=== PATIENT | female | born 1950 | race Caucasian/White ===

== ENCOUNTER → 2016-09-05 | Outpatient (CLI) | payer BC ==
--- NOTE | 2016-09-05 14:30 | KCIC ---
MR LUMBAR SPINE HISTORY:Reason For StudyReason: RT SIDED LOW BACK PAIN, RT SCIATICA / Spl. Instructions: / History: Pain for 3 months, old fx T11 COMPARISON: None Technique: Sagittal T2, sagittal STIR, and sagittal T1-weighted images were obtained. Additional axial T1 and T2 weighted imaging was also performed. FINDINGS: There is advanced facet arthropathy at L4-L5 with grade 2 degenerative anterolisthesis. There is marked ligamentum flavum thickening and a broad-based disc protrusion. This results in severe central spinal stenosis and severe right foraminal stenosis. There is no compression fracture. The conus terminates normally at the level of L1. Visualized intra-abdominal contents are within normal limits. Impression: - Grade 2 degenerative anterolisthesis of L4 on L5 resulting in severe central spinal stenosis and right foraminal stenosis. Electronically signed by: Vasu Hughes (Sep 05, 2016 14:29:22)
== END | disposition home or self-care (01) ==
LOC: KCIC MRI 12:30
PROVIDERS: ATTEND Internal Medicine
DX: M48.06 Spinal stenosis, lumbar region (principal); M43.16 Spondylolisthesis, lumbar region; M51.26 Other intervertebral disc displacement, lumbar region; M12.88 Other specific arthropathies, not elsewhere classified, other specified site
CPT/HCPCS: 72148

== ENCOUNTER → 2016-09-22 | Outpatient (CLI) | payer BC, MEDICARE ==
[~2016-09-22] MED LIST: CALC-178 PO; CHOL200027 PO; ESCI10TA PO; IBUP-1027 PO; LACT1CAP8 PO; LOSA1TAB17 PO; PANT40TA3 PO; RALO60TA PO; SIMV20TA3 PO
--- NOTE | 2016-09-22 15:04 | EKG ---
[address] [place] [address] Test Date: 2016-09-22 Test Time: 15:03:33 Pat Name: DIANE BROOKE Department: Room: Gender: F Cultural Historian: : 1950 Requested By: NINA WALLER Order Number: [id number] Reading MD: Suri Martin Measurements Intervals [place] Rate: 85 P: 0 [place]: 150 QRS: 26 QRSD: 96 T: 3 QT: 356 QTc: 424 Interpretive Statements SINUS RHYTHM QRS(T) CONTOUR ABNORMALITY CONSISTENT WITH INFERIOR INFARCT AGE UNDETERMINED ABNORMAL ECG RI6.01 No previous ECG available for comparison Electronically Signed On 09-24-2016 10:41:27 CDT by Suri Martin
[2016-09-22 15:23] LABS: BASO # 0.1 x10^3/uL (0.0-0.2); BASO % 1 % (0-3); EOS % 2 % (0-3); HEMATOCRIT 36.1 % (36.0-47.0); HEMOGLOBIN 11.8 g/dL (12.0-15.5); LYMPH # 1.1 x10^3/uL (1.0-4.8); LYMPH % 19 % (24-48); MEAN CORPUSCULAR HEMOGLOBIN 28 pg (25-35); MEAN CORPUSCULAR HGB CONC 33 g/dL (31-37); MEAN CORPUSCULAR VOLUME 87 fL (79-100); MONO % 10 % (0-9); NEUT % 67 % (31-73); PLATELET COUNT 257 x10^3/uL (140-400); RED BLOOD COUNT 4.16 x10^6/uL (3.50-5.40); RED CELL DISTRIBUTION WIDTH 13.8 % (11.5-14.5); WHITE BLOOD COUNT 5.5 x10^3/uL (4.0-11.0)
[2016-09-22 15:48] LABS: ALBUMIN 3.6 g/dL (3.4-5.0); CALCIUM 9.1 mg/dL (8.5-10.1); CREATININE 0.8 mg/dL (0.6-1.0); GFR 71.8; POTASSIUM 3.4 mmol/L (3.5-5.1); TOTAL BILIRUBIN 0.3 mg/dL (0.2-1.0); TOTAL PROTEIN 7.2 g/dL (6.4-8.2)
[2016-09-22 16:23] LABS: PROTHROMBIN TIME PATIENT 12.9 SEC (11.7-14.0)
== END | disposition home or self-care (01) ==
LOC: SURGPAT 14:31
PROVIDERS: ATTEND Neurological Surgery
DX: Z01.818 Encounter for other preprocedural examination (principal); I10 Essential (primary) hypertension
CPT/HCPCS: 36415; 80053; 85027; 85610; 85730; 87641; 93005

== ENCOUNTER 2016-10-02 07:36 | Inpatient (IN) | payer BC, MEDICARE ==
[~2016-10-02] VITALS: Ht 172.7 cm; Wt 67.1 kg
--- NOTE | 2016-10-02 06:49 | HP ---
ADMIT DATE: 10/02/2016 Stepan Catherine RN, dictating for Dr. Jose Waller. 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 She says she has noted numbness across the top of her right foot. She feels as though there is some weakness in her foot. She has fallen 3 times recently. This problem began 3 months ago. She does describe pain in her right leg and back, but says there is more discomfort than pain. ____ increase her discomfort. She takes ibuprofen. She tried acupuncture as well as physical therapy, which was not particularly helpful. She is doing chiropractic treatment currently. There is no significant problem on the left side. She has been using a cane intermittently. PAST MEDICAL HISTORY: Anemia, headaches, hypertension, osteopenia. PAST SURGICAL HISTORY: Denies. FAMILY HISTORY: Diabetes, hypertension. SOCIAL HISTORY: Employed as a nurse. . Denies substance abuse. Quit smoking greater than 10 years ago. Two alcoholic drinks daily. Drinks tea daily. ALLERGIES: COMPAZINE. CURRENT MEDICATIONS: Losartan, potassium, Evista, Lexapro, Protonix, probiotic, calcium, magnesium, vitamin D3. REVIEW OF SYSTEMS: A 12-point review of systems was obtained and is noncontributory except for that mentioned above. NEUROSURGERY EXAMINATION: GENERAL APPEARANCE: Alert, pleasant, in no acute distress. HEAD: Normocephalic and atraumatic. SKIN: Warm and dry. MUSCULOSKELETAL: Lumbar paraspinal muscle bulk is normal, restricted range of motion of the lumbar spine, [id number] tenderness of lower lumbar spine with palpation, normal range of motion of the lower extremities bilaterally. EXTREMITIES: No clubbing, cyanosis, or edema. NEUROLOGIC: Alert and oriented x 3, normal recent and remote memory, strength 5/5 in bilateral lower extremities except for her right foot and weak dorsiflexion as 4/5. Sensory was intact to light touch in the bilateral lower extremities except for decrease in the dorsum of the right foot and her right anterior lateral leg, reflexes were present and symmetric in the lower extremities bilaterally, negative straight leg raising bilaterally, gait with forward stooped posture. IMAGING: Reviewed. I reviewed a lumbar MRI scan done recently. On that study, there is a grade 2 spondylolisthesis at L4-L5 with severe central spinal stenosis associated with this. Additionally, there is superimposed right-sided disk herniation which results in additional severe neural foraminal narrowing on the right. ASSESSMENT: 1. Spondylolisthesis, lumbar region. 2. Spinal stenosis, lumbar region. 3. Intervertebral disk disorders with radiculopathy, lumbar region. 4. Foot drop, right foot. PLAN: The patient has significant right lumbar radiculopathy with right-sided foot drop. She has fallen 3 times because of this. On imaging studies, there is a grade 2 spondylolisthesis combined with severe central canal stenosis and right-sided foraminal stenosis. My feeling is that she should undergo laminectomy with reduction of her spondylolisthesis combined with an anterior posterior lumbar interbody fusion. I discussed this with her in detail. I outlined the risks of the surgery as well as the expected postoperative course. She would like to go ahead. She is going to work to make arrangements for surgery. She will let us know. We will begin making arrangements. JOSE WALLER MD DR: DIONNE/pieter JOB#: [id number] / [id number]
[~2016-10-02 07:36] MED LIST changes: +BUPIVAC MPF-EPI 0.5%-1:200000 30 ML VIAL. ONE; +CEFAZOLIN 2GM PREMIX 50 ML IV PRN; +FENTANYL PF 100 MCG/2 ML VIAL. IV PRN; +GELATIN SPONGE SIZE 100. ONE; +IV RINGERS,LACTATED 1000ML 1,000 ML IV SCH; +KETOROLAC 60 MG/2 ML SYRINGE FOR OR. ONE; +LIDOCAINE 1% 1 ML SYRINGE. ID PRN; +MORPHINE SULFATE 2 MG/ML DISP.SYRIN. IV PRN; +THROMBIN 20,000 UNIT SPRAY.SYRN KIT TP ONE
[2016-10-02] MEDS ORDERED: BACITRACIN 50,000 UNIT in IV NORMAL SALINE 1000ML BAG 1,000 ML IRR ONE (08:00)
--- NOTE | 2016-10-02 09:54 | RAD ---
CT of the lumbar spine without contrast, 10/02/2016: History: Spondylolisthesis, lumbar stenosis, brain lab study Multidetector noncontrast scans were obtained with multiplanar reconstructions produced. The data was transferred to the operating room to aid in the patient's stereotactically guided surgery. The following findings are delineated: 1. At L1-2 there is no significant posterior disc bulge or protrusion. The central spinal canal and neural foramina are well maintained. 2. At L2-3 there is mild broad-based posterior disc bulging. There are mild degenerative changes involving the facet joints. The central spinal canal is well maintained. There is mild inferior foraminal narrowing bilaterally. 3. At L3-4 there is moderate broad-based posterior disc bulging. There are mild degenerative changes involving the facet joints with posterior ligamentous thickening. There is mild narrowing of the central spinal canal with thecal sac measuring 8-9 mm in AP diameter at the midline. There is mild inferior foraminal narrowing. 4. At L4-5 there are severe degenerative changes involving the facet joints with a moderate spondylolisthesis. There is approximately 8 mm of anterior subluxation of L4 relative to L5. There is broad-based posterior disc protrusion, more so on the right. This is causing severe encroachment upon the right neural foramen and moderate left foraminal encroachment. The combination of findings is causing severe central spinal stenosis at this level. 5. At L5-S1 there is mild posterior disc bulging. There are mild degenerative changes involving the facet joints. No significant central spinal stenosis is evident. There is mild bilateral foraminal narrowing. 6. Incidental findings include right adrenal calcifications. Aortoiliac calcific plaquing is present. PQRS Compliance Statement: One or more of the following individualized dose reduction techniques were utilized for this examination: 1. Automated exposure control 2. Adjustment of the mA and/or kV according to patient size 3. Use of iterative reconstruction technique
[2016-10-02] MEDS ORDERED: FENTANYL PF 100 MCG/2 ML VIAL. ONE (10:39)
[2016-10-02] MEDS ORDERED: REMIFENTANIL 2 MG VIAL. IV ONE ×2 (10:39→14:05)
[2016-10-02] MEDS ORDERED: GLYCOPYRROLATE 1 MG/5 ML VIAL. ONE (10:39)
[2016-10-02] MEDS ORDERED: ROCURONIUM 50 MG/5 ML VIAL. ONE (10:39)
[2016-10-02] MEDS ORDERED: MIDAZOLAM HCL 2 MG/2 ML VIAL. ONE (10:39)
[2016-10-02] MEDS ORDERED: DESFLURANE > 120 MINUTES IH ONE (10:41)
[2016-10-02] MEDS ORDERED: PROPOFOL 20 ML IV ONE (10:42)
[2016-10-02] MEDS ORDERED: ONDANSETRON PF 4 MG/2 ML VIAL. ONE (10:42)
[2016-10-02] MEDS ORDERED: PROPOFOL 50 ML IV ONE ×3 (10:42→14:40)
[2016-10-02] MEDS ORDERED: LIDOCAINE 2% 100 MG/5 ML DISP.SYRIN. ONE (10:42)
[2016-10-02] MEDS ORDERED: PHENYLEPHRINE 10 MG/ML VIAL. ONE ×2 (10:42→15:55)
[2016-10-02] MEDS ORDERED: DEXAMETHASONE SOD PHOS 20 MG/5 ML VIAL. ONE (10:42)
[2016-10-02] MEDS ORDERED: SCOPOLAMINE 1.5MG PATCH. TD ONE (11:43)
[2016-10-02] MEDS ORDERED: 0.9 % SODIUM CHLORIDE 50 ML VIAL. IJ ONE (14:05)
[2016-10-02] MEDS ORDERED: CEFAZOLIN PREMIX 2 GM/50 ML BAG. IV ONE (16:00)
[2016-10-02] MEDS: HYDROMORPHONE 2 MG/ML VIAL. IV PRN ×3 (17:07→17:47)
[2016-10-02] MEDS ORDERED: 0.9 % SODIUM CHLORIDE 10 ML DISP.SYRIN. IV PRN (18:15)
[2016-10-02] MEDS ORDERED: FENTANYL PF 100 MCG/2 ML VIAL. IV PRN ×2 (18:15)
[2016-10-02] MEDS ORDERED: MAG HYDROX/ALUMINUM HYD/SIMETH 30 ML ORAL.SUSP PO PRN (18:15)
[2016-10-02] MEDS ORDERED: DIPHENHYDRAMINE 50 MG/ML VIAL IV PRN (18:15)
[2016-10-02] MEDS ORDERED: HYDROMORPHONE 2 MG/ML VIAL. IV PRN (18:15)
[2016-10-02] MEDS ORDERED: DIPHENHYDRAMINE HCL 25 MG CAPSULE PO PRN (18:15)
[2016-10-02] MEDS ORDERED: CALCIUM CARBONATE 500 MG TAB.CHEW PO PRN (18:15)
[2016-10-02 18:30] VITALS: BP 103/72
[2016-10-02] MEDS: POTASSIUM CL 20MEQ D5-0.45NACL 1,000 ML IV SCH (18:30)
[2016-10-02 18:49] VITALS: BP 111/89
[2016-10-02 19:09] VITALS: BP 99/61
[2016-10-02 19:30] VITALS: BP 119/74
[2016-10-02 20:00] VITALS: BP 117/79
[2016-10-02] MEDS: DOCUSATE SODIUM 100 MG CAPSULE PO SCH (20:30)
[2016-10-02] MEDS: METHOCARBAMOL 750 MG TABLET PO SCH (20:30)
[2016-10-02] MEDS: SIMVASTATIN 20 MG TABLET PO SCH (20:30)
[2016-10-02] MEDS: CEFAZOLIN SODIUM 1 GM in IV NORMAL SALINE 50ML 50 ML IV SCH (20:30)
[2016-10-02] MEDS: OXYCODONE/APAP 5/325 TABLET. PO PRN (20:32)
[2016-10-02 23:00] VITALS: BP 92/66
[2016-10-03] VITALS (7 sets, daily range): BP systolic 80–104; BP diastolic 42–66
[2016-10-03] MEDS: FENTANYL PF 100 MCG/2 ML VIAL. IV PRN (02:15)
[2016-10-03] MEDS: CEFAZOLIN SODIUM 1 GM in IV NORMAL SALINE 50ML 50 ML IV SCH ×2 (04:00→11:38)
[2016-10-03] MEDS: OXYCODONE/APAP 5/325 TABLET. PO PRN ×5 (04:44→22:40)
[2016-10-03] MEDS: POTASSIUM CL 20MEQ D5-0.45NACL 1,000 ML IV SCH ×2 (07:50→21:10)
[2016-10-03] MEDS: ESCITALOPRAM 10 MG TABLET. PO SCH (08:49)
[2016-10-03] MEDS: METHOCARBAMOL 750 MG TABLET PO SCH ×3 (08:49→21:38)
[2016-10-03] MEDS: PANTOPRAZOLE 40 MG TABLET. PO SCH (08:49)
[2016-10-03] MEDS: DOCUSATE SODIUM 100 MG CAPSULE PO SCH ×2 (08:49→21:39)
[2016-10-03] MEDS: RALOXIFENE 60 MG TABLET. PO SCH (08:49)
[2016-10-03] MEDS: CALCIUM CARB/VIT D3 500/200 TABLET. PO SCH (08:49)
[2016-10-03] MEDS: CHOLECALCIFEROL (VITAMIN D3) 1,000 UNIT TABLET PO SCH (08:49)
[2016-10-03] MEDS: LACTOBACILLUS ACIDOPH & BULGAR 1 TABLET. PO SCH (08:49)
[2016-10-03] MEDS: LOSARTAN POTASSIUM 50 MG TABLET. PO SCH (09:00)
--- NOTE | 2016-10-03 10:30 | PDOC ---
PROGRESS NOTES Subjective Subjective POD #1 up in chair right leg pain resolved, c/o some mild knee pain back/ incision pain - controlled with medication Objective Objective Vital Signs Date Time Temp Pulse Resp B/P Pulse Ox O2 Delivery O2 Flow Rate FiO2 10/03/16 09:51 20 10/03/16 08:55 79 93/55 Room Air 10/03/16 07:53 2.0 10/03/16 06:33 97.9 95 97.9 Intake and Output 10/03/16 07:00 Intake Total 2910 ml Output Total 600 ml Balance 2310 ml Intake Oral 2810 ml IV Total 100 ml Output Urine Total 600 ml Physical Exam General: Alert, Oriented X3, Cooperative MUSCULOSKELETAL: Other (MACIAS) Neuro: Normal speech Psych/Mental Status: Mental status NL Skin: Other (dressing C,D,I, flat) Assessment Assessment Problems Medical Problems: (1) Spondylolisthesis Status: Acute Plan Plan of Care encouraged increased activity as tolerated PT Likely dc tomorrow Comment Review of Relevant I have reviewed the following items meryl (where applicable) has been applied. Medications Current Medications Fentanyl Citrate (Fentanyl 2ml Vial) 25 mcg PRN Q5MIN PRN IV MILD PAIN; Start 10/02/16 at 07:00; Stop 10/02/16 at 18:00; Status DC Fentanyl Citrate (Fentanyl 2ml Vial) 50 mcg PRN Q5MIN PRN IV MODERATE PAIN Last administered on 10/02/16 17:35; Start 10/02/16 at 07:00; Stop 10/02/16 at 18:00; Status DC Morphine Sulfate 1 mg 1 mg PRN Q10MIN PRN IV SEVERE PAIN; Start 10/02/16 at 07: 00; Stop 10/02/16 at 18:00; Status DC Lactated Ringer's (Iv Lactated Ringers) 1,000 ml @ 30 mls/hr Q24H IV Last administered on 10/02/16 08:34; Start 10/02/16 at 07:00; Stop 10/02/16 at 18:59 ; Status DC Lidocaine HCl 2 ml 1X PRN PRN ID IV START; Start 10/02/16 at 07:00; Stop at 18:00; Status DC Hydromorphone HCl 0.5 mg 0.5 mg PRN Q10MIN PRN IV SEVERE PAIN, Second choice Last administered on 10/02/16 17:47; Start 10/02/16 at 07:00; Stop 10/02/16 at 18:00; Status DC Bacitracin 15659 unit/Sodium Chloride 1,000 ml @ 1,000 mls/hr 1X PERIOP ONCE IRR Last administered on 10/02/16 12:41; Start 10/02/16 at 08:00; Stop at 08:59; Status DC Cefazolin Sodium/ Dextrose (Ancef 2gm Premix) 50 ml @ 100 mls/hr 1X PREOP PRN IV PRIOR TO PROCEDURE Last administered on 10/02/16 16:04; Start 10/02/16 at 06 :00; Stop 10/02/16 at 18:00; Status DC Thrombin 20,000 unit STK-MED ONCE TP Last administered on 10/02/16 12:41; Start 10/02/16 at 06:44; Stop 10/02/16 at 06:45; Status DC Gelatin (Gelfoam Size 100) 1 each STK-MED ONCE .ROUTE Last administered on 12:41; Start 10/02/16 at 06:44; Stop 10/02/16 at 06:45; Status DC Ketorolac Tromethamine (Toradol For Or Only) 60 mg STK-MED ONCE .ROUTE Last administered on 10/02/16 12:41; Start 10/02/16 at 06:44; Stop 10/02/16 at 06:45 ; Status DC Bupivacaine HCl/ Epinephrine Bitart (Sensorcain-Mpf Epi 0.5%-1:[id number]) 30 ml STK -MED ONCE .ROUTE Last administered on 10/02/16 12:41; Start 10/02/16 at 06:44 ; Stop 10/02/16 at 06:45; Status DC Midazolam HCl (Versed) 2 mg STK-MED ONCE .ROUTE ; Start 10/02/16 at 10:39; Stop 10/02/16 at 10:40; Status DC Remifentanil HCl (Ultiva) 2 mg STK-MED ONCE IV ; Start 10/02/16 at 10:39; Stop 10/02/16 at 10:40; Status DC Fentanyl Citrate (Fentanyl 2ml Vial) 100 mcg STK-MED ONCE .ROUTE ; Start at 10:39; Stop 10/02/16 at 10:40; Status DC Glycopyrrolate (Robinul) 1 mg STK-MED ONCE .ROUTE ; Start 10/02/16 at 10:39; Stop 10/02/16 at 10:40; Status DC Rocuronium [place] (Zemuron) 50 mg STK-MED ONCE .ROUTE ; Start 10/02/16 at 10:39 ; Stop 10/02/16 at 10:40; Status DC Desflurane (Suprane) 90 ml STK-MED ONCE IH ; Start 10/02/16 at 10:41; Stop 10/02 at 10:42; Status DC Lidocaine HCl 100 mg STK-MED ONCE .ROUTE ; Start 10/02/16 at 10:42; Stop at 10:43; Status DC Dexamethasone Sodium Phosphate 20 mg 20 mg STK-MED ONCE .ROUTE ; Start 10/02/16 at 10:42; Stop 10/02/16 at 10:43; Status DC Propofol 20 ml @ As Directed STK-MED ONCE IV ; Start 10/02/16 at 10:42; Stop at 10:43; Status DC Propofol (Diprivan) 50 ml @ As Directed STK-MED ONCE IV ; Start 10/02/16 at 10: 42; Stop 10/02/16 at 10:43; Status DC Ondansetron HCl (Zofran) 4 mg STK-MED ONCE .ROUTE ; Start 10/02/16 at 10:42; Stop 10/02/16 at 10:43; Status DC Phenylephrine HCl (Prashanth-Synephrine Inj) 10 mg STK-MED ONCE .ROUTE ; Start at 10:42; Stop 10/02/16 at 10:43; Status DC Scopolamine 1 patch 1 patch STK-MED ONCE TD ; Start 10/02/16 at 11:43; Stop at 11:44; Status DC Propofol (Diprivan) 50 ml @ As Directed STK-MED ONCE IV ; Start 10/02/16 at 13: 04; Stop 10/02/16 at 13:05; Status DC Remifentanil HCl 2 mg 2 mg STK-MED ONCE IV ; Start 10/02/16 at 14:05; Stop 10/02 at 14:06; Status DC Propofol (Diprivan) 50 ml @ As Directed STK-MED ONCE IV ; Start 10/02/16 at 14: 40; Stop 10/02/16 at 14:41; Status DC Phenylephrine HCl (Prashanth-Synephrine Inj) 10 mg STK-MED ONCE .ROUTE ; Start at 15:55; Stop 10/02/16 at 15:56; Status DC Hydromorphone HCl (Dilaudid) 0.5 mg PRN Q10MIN PRN IV SEVERE PAIN, Second choice Last administered on 10/02/16 17:59; Start 10/02/16 at 18:15; Stop 10/03 at 06:00; Status DC Fentanyl Citrate (Fentanyl 2ml Vial) 50 mcg PRN Q5MIN PRN IV MODERATE PAIN Last administered on 10/02/16 18:09; Start 10/02/16 at 18:15; Stop 10/03/16 at 06:00; Status DC Escitalopram Oxalate (Lexapro) 10 mg DAILY PO Last administered on 10/03/16 08 :49; Start 10/03/16 at 09:00 Pantoprazole Sodium (Protonix) 40 mg DAILYAC PO Last administered on 10/03/16 08:49; Start 10/03/16 at 07:30 Raloxifene HCl (Evista) 60 mg DAILY PO Last administered on 10/03/16 08:49; Start 10/03/16 at 09:00 Simvastatin (Zocor) 20 mg HS PO Last administered on 10/02/16 20:30; Start at 21:00 Calcium/Vitamin D (Oscal D 500mg/ 200uts) 1 tab [id number] PO Last administered on 10/03/16 08:49; Start 10/03/16 at 08:00 Vitamin D (Vitamin D3) 2,000 unit DAILY PO Last administered on 10/03/16 08:49 ; Start 10/03/16 at 09:00 Lactobacillus Acidophilus (Bacid, Lyric-Bid) 1 tab DAILY PO Last administered on 10/03/16 08:49; Start 10/03/16 at 09:00 Losartan Potassium (Cozaar) 100 mg DAILY PO ; Start 10/03/16 at 09:00 Acetaminophen (Tylenol) 650 mg PRN Q6HRS PRN PO MILD PAIN / TEMP; Start at 18:15 Al Hydroxide/Mg Hydroxide (Mylanta Plus Xs) 30 ml PRN Q3HRS PRN PO HEARTBURN / GAS; Start 10/02/16 at 18:15 Calcium Carbonate/ Glycine (Tums) 500 mg PRN Q3HRS PRN PO INDIGESTION; Start at 18:15 Diphenhydramine HCl (Benadryl) 25 mg PRN Q6HRS PRN PO ITCHING; Start 10/02/16 at 18:15 Diphenhydramine HCl (Benadryl) 25 mg PRN Q6HRS PRN IV ITCHING; Start 10/02/16 at 18:15 Sodium Chloride 3 ml 3 ml QSHIFT PRN IV AFTER MEDS AND BLOOD DRAWS; Start 10/02 at 18:15 Potassium Chloride/Dextrose/ Sod Cl (KCl 20 Meq In D5W-1/2 NS) 1,000 ml @ 75 mls/hr [id number] IV ; Start 10/02/16 at 18:30 Oxycodone/ Acetaminophen (Percocet 5/325) 1 tab PRN Q4HRS PRN PO MILD PAIN, 1ST CHOICE; Start 10/02/16 at 18:15 Oxycodone/ Acetaminophen (Percocet 5/325) 2 tab PRN Q4HRS PRN PO MODERATE PAIN , SEVERE PAIN Last administered on 10/03/16 09:51; Start 10/02/16 at 18:15 Methocarbamol (Robaxin) 750 mg TID PO Last administered on 10/03/16 08:49; Start 10/02/16 at 21:00 Docusate Sodium (Colace) 100 mg BID PO Last administered on 10/03/16 08:49; Start 10/02/16 at 21:00 Magnesium Hydroxide (Milk Of Magnesia) 2,400 mg PRN Q12HR PRN PO CONSTIPATION; Start 10/02/16 at 18:15 Ondansetron HCl 4 mg 4 mg PRN Q6HRS PRN IV NAUESA, 1ST CHOICE; Start 10/02/16 at 18:15 Cefazolin Sodium/ Sodium Chloride (Ancef/Iv Sodium Chloride 0.9% 50ml) 50 ml @ 100 mls/hr Q8H IV Last administered on 10/03/16 04:00; Start 10/02/16 at 20:00 ; Stop 10/03/16 at 12:29 Fentanyl Citrate (Fentanyl 2ml Vial) 25 mcg PRN Q1HR PRN IV PAIN; Start at 18:15 Fentanyl Citrate (Fentanyl 2ml Vial) 50 mcg PRN Q1HR PRN IV PAIN Last administered on 10/03/16 02:15; Start 10/02/16 at 18:15 Cefazolin Sodium/ Dextrose (Ancef 2gm Premix) 2 gm STK-MED ONCE IV ; Start 10/02 at 16:00; Stop 10/03/16 at 08:08; Status DC Active Scripts Active Reported Vitamin D3 (Cholecalciferol (Vitamin D3)) 2,000 Unit Tablet 2,000 Unit PO DAILY Calcium 1,000 + D3 Caplet (Calcium Carbonate/Vitamin D3) 1 Each Tablet 1 Each PO DAILY Simvastatin 20 Mg Tablet 20 Mg PO HS Probiotic (Lactobacillus Combo No.11) 1 Each Cap.sprink 1 Each PO DAILY Protonix (Pantoprazole Sodium) 40 Mg Tablet.dr 40 Mg PO DAILY Escitalopram Oxalate 10 Mg Tablet 10 Mg PO DAILY Evista (Raloxifene Hcl) 60 Mg Tablet 60 Mg PO DAILY Losartan-Hctz 100-25 Mg Tab (Losartan/Hydrochlorothiazide) 1 Each Tablet 1 Each PO DAILY Ibuprofen 400 Mg Tablet 400 Mg PO PRN Q6HRS PRN Vitals/I & O Vital Sign - Last 24 Hours 10/02/16 10/02/16 10/02/16 10/02/16 16:52 17:05 17:07 17:08 Temp 98.1 98.1 Pulse 91 91 Resp 18 18 16 B/P 121/68 107/50 Pulse Ox 100 97 100 O2 Delivery Simple Mask Nasal Cannula Simple Mask Simple Mask O2 Flow Rate 10 2 10 10/02/16 10/02/16 10/02/16 10/02/16 17:20 17:23 17:35 17:38 Temp 98.3 98.3 Pulse 93 97 Resp 14 16 16 16 B/P 117/73 107/64 Pulse Ox 99 97 O2 Delivery Room Air Nasal Cannula Nasal Cannula Nasal Cannula O2 Flow Rate 2 2 10/02/16 10/02/16 10/02/16 10/02/16 17:47 17:59 18:09 18:20 Resp 16 20 Pulse Ox 98 96 O2 Delivery Nasal Cannula Nasal Cannula Room Air Nasal Cannula O2 Flow Rate 2.0 2.0 2.0 10/02/16 10/02/16 10/02/16 10/02/16 18:30 18:37 18:37 18:49 Temp 97.8 97.8 Pulse 90 87 Resp 18 16 16 B/P 103/72 111/89 Pulse Ox 97 96 96 O2 Delivery Nasal Cannula Nasal Cannula Nasal Cannula O2 Flow Rate 2.0 2.0 2.0 10/02/16 10/02/16 10/02/16 10/02/16 19:09 19:30 19:53 20:00 Pulse 90 95 97 Resp 20 20 20 B/P 99/61 119/74 117/79 Pulse Ox 96 96 96 O2 Delivery Nasal Cannula Nasal Cannula Nasal Cannula Nasal Cannula O2 Flow Rate 2.0 2.0 2.0 2.0 10/02/16 10/02/16 10/02/16 10/03/16 20:32 21:45 23:00 02:15 Temp 97.6 97.6 Pulse 88 Resp 20 18 B/P 92/66 Pulse Ox 96 97 O2 Delivery Nasal Cannula Room Air Room Air O2 Flow Rate 2.0 2.0 10/03/16 10/03/16 10/03/16 10/03/16 02:45 03:00 04:44 05:45 Pulse 87 Resp 18 20 20 18 B/P 80/42 Pulse Ox 92 95 O2 Delivery Room Air Room Air Room Air 10/03/16 10/03/16 10/03/16 10/03/16 06:33 07:53 08:55 09:51 Temp 97.9 97.9 Pulse 94 79 Resp 20 20 20 B/P 97/56 93/55 Pulse Ox 95 O2 Delivery Room Air Nasal Cannula Room Air O2 Flow Rate 2.0 Intake and Output 10/02/16 10/02/16 10/03/16 15:00 23:00 07:00 Intake Total 60 ml 2850 ml Output Total 600 ml Balance 60 ml 2250 ml DAYANA LANDAVERDE APRN Oct 03, 2016 10:30
--- NOTE | 2016-10-03 10:33 | DISCH ---
DISCHARGE INSTRUCTIONS Condition on Discharge Condition on Discharge: Stable Activity After Discharge Activity Instructions for Disc: Activity as tolerated, Avoid exertion Bathing Instructions: Shower-keep dressing dry Lifting Instructions after Dis: No heavy lifting, No pulling or pushing, Do not lift >10 pounds Driving Instructions after Dis: No driving for 2 weeks Diet after Discharge Additional Diet Restrictions: resume home diet Wound Incision Care Wound/Incision Care: Ice to area for comfort Other wound/incision instructi: may remove in 48 hrs if dry then may shower, no soaking, HH dressing change Community/Resources/Services Services at Discharge: Home Health Care Services Contacting the after DC Call your doctor for: Concerns you may have Follow-Up Follow up with: Dr. Rahman's nurse in 2 weeks [phone] Treatment/Equipment after DC Adaptive Equipment Issued: DAYANA Ramon APRN Oct 03, 2016 10:33
[2016-10-03] MEDS ORDERED: DOCU-27 PO (10:35)
[2016-10-03] MEDS ORDERED: OXYC1TAB7 PO (10:35)
[2016-10-03] MEDS ORDERED: METH750T2 PO (10:35)
[2016-10-03] MEDS ORDERED: BISACODYL 5 MG TABLET.DR. PO PRN (13:30)
[2016-10-03] MEDS: BISACODYL 5 MG TABLET.DR. PO PRN (17:53)
--- NOTE | 2016-10-03 21:36 | OP ---
DATE OF SURGERY: 10/02/2016 PREOPERATIVE DIAGNOSES: Lumbar spinal stenosis with spondylolisthesis and radiculopathy, L4-L5. POSTOPERATIVE DIAGNOSIS: Lumbar spinal stenosis with spondylolisthesis and radiculopathy, L4-L5. OPERATION PERFORMED: Lumbar laminectomy, L4-L5, posterior instrumentation with reduction screws L4-L5, posterolateral fusion L4-L5 with allograft and autograft bone, anterior discectomy L4-L5, anterior interbody fusion L4-L5 with interbody fusion cage packed with allograft and autograft bone. The operation was done with stimulated EMG monitoring, fluoroscopy, BrainLAB guidance, microscopic dissection, bone marrow aspiration. SURGEON: Jose Waller M.D. PUFF IRONER: PEDRO Mae, assisted with the surgery. She assisted with the decompression, instrumentation, anterior discectomy and fusion. OPERATIVE INDICATIONS: The patient is a very pleasant 66-year-old who is having difficulty with severe back and right buttock, posterior thigh and leg pain. On imaging studies, she had the above-mentioned findings and there was significant motion on flexion and extension films and I recommended lumbar decompression, reduction of her spondylolisthesis, discectomy and anterior, posterior fusion. She understood the surgery and the risks. She understood the technique of the operation. She wished to go ahead. DESCRIPTION OF PROCEDURE: Following general endotracheal anesthesia, the patient was positioned prone on the Oscar table. Her lumbar region was then prepped and draped in standard fashion. ESSIE hose and AV impulse boots were applied for DVT prophylaxis. A microscope was draped. Fluoroscopy was draped and brought into the field. Ancef 2 grams was given less than 1 hour prior to initiation of surgery and repeated at 4 hour intervals. I placed pins on the right iliac crest attached to the CrowdTwist star and initialized the CrowdTwist system. Using BrainLAB guidance and I made a midline incision over the L4-L5 interspace. I dissected down through the skin and subcutaneous tissue and reflected the paraspinal muscles first in the left side. I placed a [place] micro disc retractor at this point and exposed the lamina and spinous processes of L4 and L5 and also the left lateral gutter. I placed a Jamshidi needle into the left iliac crest and aspirated 20 mL of bone marrow to use with allograft bone. I then drilled into the posterior aspect of the pedicles of L4 and L5 followed by the black ball followed by ball tip probe, followed by tap, followed by screw placement. I used the NuVasive system and placed 6.5 x 45 screws, I placed the piero, but did not yet torque the assembly. I did trim spinous process and morcellized this and used this with allograft bone to pack into the left lateral gutter. I then went to the right side and in similar fashion, I created an openings into the pedicles of L4 and L5, but did not yet place screws that covered the openings with bone wax. Also, again using the micro lumbar retractor to minimize retraction, I exposed the gutter. I might note that prior to placement of bone for the posterolateral fusion, I did excoriate the transverse processes and lateral facets on both sides. At this time, I trimmed further bone, which was morcellized. I packed allograft bone into the gutters and used the high speed air drill to bur down a generous laminectomy, which I carried over toward the right side to ensure that the right-sided nerve roots are well decompressed. I did save this bone for use with allograft bone. At this point, then I placed the 6.5 x 45 screws into L4 and L5. I used the reduction screws in L4. I torqued the L5 screws at this point with 40 mm rods and I placed the nuts in L5 and partially reduced the spondylolisthesis. I further distracted this region to help accommodate and simplify the anterior operation. At this point, then I tilted the patient away from me and performed the anterior discectomy. After tilting the patient, I made an incision in the right posterior flank and passed the BrainLAB with sleeve down to dock just initially at the pedicle of L5 where it attached to the body and then worked superiorly and entered into the disc space at this location. I did pass the K wire and passed the dilator after ensuring that the nerve root was projected and then passed the working channel and remove the dilator. Through the working channel, then I performed a discectomy using endplate scrapers, pituitary rongeurs, disc shaver and worked aggressively to remove disc material from the L4-L5 interspace. Following this, then I did place the shield to protect the L4 root as it moved quite far laterally from the passage of the cage and removed the working channel. I then passed these trials to select the appropriate one and I felt the 10 mm cage would be appropriate. I did then pack bone into the disc space and then at this point, passed the interbody fusion cage as it was entering into the disc space. I entered in to the disc space and rotated into appropriate position. I did take fluoroscopic images to ensure that it was in satisfactory position. I tilted the patient back toward me and then worked posteriorly to very gently compress at L4-L5 on the right side. I torqued these screws in the standard fashion and at this time, I released and removed the director environmental and shield after I copiously irrigated. This accomplished, then I worked and removed further bone to complete the laminectomy. I noted that on fluoroscopic images the spondylolisthesis was significantly reduced. The interbody fusion cage was in excellent position. I felt that I had an excellent discectomy anteriorly, interbody bone as well as posterolaterally. I torqued again in a sequential fashion and at this point, then I irrigated copiously. I closed the wound with absorbable sutures. The skin was closed with a 4-0 subcuticular stitch. I did obtain excellent hemostasis prior to the closure. I felt the surgery went very well. JOSE WALLER MD DR: DIONNE/pieter JOB#: [id number] / [id number] ANSLEY
[2016-10-03] MEDS: SIMVASTATIN 20 MG TABLET PO SCH (21:39)
[2016-10-04] VITALS (7 sets, daily range): BP systolic 84–124; BP diastolic 49–70
[2016-10-04] MEDS: FENTANYL PF 100 MCG/2 ML VIAL. IV PRN ×2 (00:17→16:08)
[2016-10-04] MEDS: OXYCODONE/APAP 5/325 TABLET. PO PRN ×5 (05:00→23:02)
[2016-10-04] MEDS: CALCIUM CARB/VIT D3 500/200 TABLET. PO SCH (08:56)
[2016-10-04] MEDS: RALOXIFENE 60 MG TABLET. PO SCH (08:56)
[2016-10-04] MEDS: ESCITALOPRAM 10 MG TABLET. PO SCH (08:57)
[2016-10-04] MEDS: METHOCARBAMOL 750 MG TABLET PO SCH ×3 (08:57→20:51)
[2016-10-04] MEDS: CHOLECALCIFEROL (VITAMIN D3) 1,000 UNIT TABLET PO SCH (08:57)
[2016-10-04] MEDS: PANTOPRAZOLE 40 MG TABLET. PO SCH (08:57)
[2016-10-04] MEDS: DOCUSATE SODIUM 100 MG CAPSULE PO SCH ×2 (08:57→20:51)
[2016-10-04] MEDS: LACTOBACILLUS ACIDOPH & BULGAR 1 TABLET. PO SCH (08:57)
[2016-10-04] MEDS: LOSARTAN POTASSIUM 50 MG TABLET. PO SCH (09:00)
[2016-10-04] MEDS: POTASSIUM CL 20MEQ D5-0.45NACL 1,000 ML IV SCH ×2 (10:30→23:50)
[2016-10-04] MEDS: ONDANSETRON PF 4 MG/2 ML VIAL. IV PRN ×2 (11:46→18:50)
--- NOTE | 2016-10-04 13:10 | PDOC ---
PROGRESS NOTES Subjective Subjective POD #2 back/ incisional pain Objective Objective Vital Signs Date Time Temp Pulse Resp B/P Pulse Ox O2 Delivery O2 Flow Rate FiO2 10/04/16 13:00 16 Room Air 10/04/16 11:00 98.0 87 98/52 96 98.0 10/03/16 23:45 2.0 Intake and Output 10/04/16 07:00 Intake Total 3330 ml Balance 3330 ml Intake Oral 3330 ml # Voids 7 Physical Exam General: Alert, Oriented X3, Cooperative MUSCULOSKELETAL: Other (MACIAS) Neuro: Normal speech Skin: Other (dressing C,D,I, flat) Assessment Assessment Problems Medical Problems: (1) Spondylolisthesis Status: Acute Plan Plan of Care likely dc today f/u 2 weeks Comment Review of Relevant I have reviewed the following items meryl (where applicable) has been applied. Medications Current Medications Fentanyl Citrate (Fentanyl 2ml Vial) 25 mcg PRN Q5MIN PRN IV MILD PAIN; Start 10/02/16 at 07:00; Stop 10/02/16 at 18:00; Status DC Fentanyl Citrate (Fentanyl 2ml Vial) 50 mcg PRN Q5MIN PRN IV MODERATE PAIN Last administered on 10/02/16 17:35; Start 10/02/16 at 07:00; Stop 10/02/16 at 18:00; Status DC Morphine Sulfate 1 mg 1 mg PRN Q10MIN PRN IV SEVERE PAIN; Start 10/02/16 at 07: 00; Stop 10/02/16 at 18:00; Status DC Lactated Ringer's (Iv Lactated Ringers) 1,000 ml @ 30 mls/hr Q24H IV Last administered on 10/02/16 08:34; Start 10/02/16 at 07:00; Stop 10/02/16 at 18:59 ; Status DC Lidocaine HCl 2 ml 1X PRN PRN ID IV START; Start 10/02/16 at 07:00; Stop at 18:00; Status DC Hydromorphone HCl 0.5 mg 0.5 mg PRN Q10MIN PRN IV SEVERE PAIN, Second choice Last administered on 10/02/16 17:47; Start 10/02/16 at 07:00; Stop 10/02/16 at 18:00; Status DC Bacitracin 66662 unit/Sodium Chloride 1,000 ml @ 1,000 mls/hr 1X PERIOP ONCE IRR Last administered on 10/02/16 12:41; Start 10/02/16 at 08:00; Stop at 08:59; Status DC Cefazolin Sodium/ Dextrose (Ancef 2gm Premix) 50 ml @ 100 mls/hr 1X PREOP PRN IV PRIOR TO PROCEDURE Last administered on 10/02/16 16:04; Start 10/02/16 at 06 :00; Stop 10/02/16 at 18:00; Status DC Thrombin 20,000 unit STK-MED ONCE TP Last administered on 10/02/16 12:41; Start 10/02/16 at 06:44; Stop 10/02/16 at 06:45; Status DC Gelatin (Gelfoam Size 100) 1 each STK-MED ONCE .ROUTE Last administered on 12:41; Start 10/02/16 at 06:44; Stop 10/02/16 at 06:45; Status DC Ketorolac Tromethamine (Toradol For Or Only) 60 mg STK-MED ONCE .ROUTE Last administered on 10/02/16 12:41; Start 10/02/16 at 06:44; Stop 10/02/16 at 06:45 ; Status DC Bupivacaine HCl/ Epinephrine Bitart (Sensorcain-Mpf Epi 0.5%-1:[id number]) 30 ml STK -MED ONCE .ROUTE Last administered on 10/02/16 12:41; Start 10/02/16 at 06:44 ; Stop 10/02/16 at 06:45; Status DC Midazolam HCl (Versed) 2 mg STK-MED ONCE .ROUTE ; Start 10/02/16 at 10:39; Stop 10/02/16 at 10:40; Status DC Remifentanil HCl (Ultiva) 2 mg STK-MED ONCE IV ; Start 10/02/16 at 10:39; Stop 10/02/16 at 10:40; Status DC Fentanyl Citrate (Fentanyl 2ml Vial) 100 mcg STK-MED ONCE .ROUTE ; Start at 10:39; Stop 10/02/16 at 10:40; Status DC Glycopyrrolate (Robinul) 1 mg STK-MED ONCE .ROUTE ; Start 10/02/16 at 10:39; Stop 10/02/16 at 10:40; Status DC Rocuronium [place] (Zemuron) 50 mg STK-MED ONCE .ROUTE ; Start 10/02/16 at 10:39 ; Stop 10/02/16 at 10:40; Status DC Desflurane (Suprane) 90 ml STK-MED ONCE IH ; Start 10/02/16 at 10:41; Stop 10/02 at 10:42; Status DC Lidocaine HCl 100 mg STK-MED ONCE .ROUTE ; Start 10/02/16 at 10:42; Stop at 10:43; Status DC Dexamethasone Sodium Phosphate 20 mg 20 mg STK-MED ONCE .ROUTE ; Start 10/02/16 at 10:42; Stop 10/02/16 at 10:43; Status DC Propofol 20 ml @ As Directed STK-MED ONCE IV ; Start 10/02/16 at 10:42; Stop at 10:43; Status DC Propofol (Diprivan) 50 ml @ As Directed STK-MED ONCE IV ; Start 10/02/16 at 10: 42; Stop 10/02/16 at 10:43; Status DC Ondansetron HCl (Zofran) 4 mg STK-MED ONCE .ROUTE ; Start 10/02/16 at 10:42; Stop 10/02/16 at 10:43; Status DC Phenylephrine HCl (Prashanth-Synephrine Inj) 10 mg STK-MED ONCE .ROUTE ; Start at 10:42; Stop 10/02/16 at 10:43; Status DC Scopolamine 1 patch 1 patch STK-MED ONCE TD ; Start 10/02/16 at 11:43; Stop at 11:44; Status DC Propofol (Diprivan) 50 ml @ As Directed STK-MED ONCE IV ; Start 10/02/16 at 13: 04; Stop 10/02/16 at 13:05; Status DC Remifentanil HCl 2 mg 2 mg STK-MED ONCE IV ; Start 10/02/16 at 14:05; Stop 10/02 at 14:06; Status DC Propofol (Diprivan) 50 ml @ As Directed STK-MED ONCE IV ; Start 10/02/16 at 14: 40; Stop 10/02/16 at 14:41; Status DC Phenylephrine HCl (Prashanth-Synephrine Inj) 10 mg STK-MED ONCE .ROUTE ; Start at 15:55; Stop 10/02/16 at 15:56; Status DC Hydromorphone HCl (Dilaudid) 0.5 mg PRN Q10MIN PRN IV SEVERE PAIN, Second choice Last administered on 10/02/16 17:59; Start 10/02/16 at 18:15; Stop 10/03 at 06:00; Status DC Fentanyl Citrate (Fentanyl 2ml Vial) 50 mcg PRN Q5MIN PRN IV MODERATE PAIN Last administered on 10/02/16 18:09; Start 10/02/16 at 18:15; Stop 10/03/16 at 06:00; Status DC Escitalopram Oxalate (Lexapro) 10 mg DAILY PO Last administered on 10/04/16 08 :57; Start 10/03/16 at 09:00 Pantoprazole Sodium (Protonix) 40 mg DAILYAC PO Last administered on 10/04/16 08:57; Start 10/03/16 at 07:30 Raloxifene HCl (Evista) 60 mg DAILY PO Last administered on 10/04/16 08:56; Start 10/03/16 at 09:00 Simvastatin (Zocor) 20 mg HS PO Last administered on 10/03/16 21:39; Start at 21:00 Calcium/Vitamin D (Oscal D 500mg/ 200uts) 1 tab [id number] PO Last administered on 10/04/16 08:56; Start 10/03/16 at 08:00 Vitamin D (Vitamin D3) 2,000 unit DAILY PO Last administered on 10/04/16 08:57 ; Start 10/03/16 at 09:00 Lactobacillus Acidophilus (Bacid, Lyric-Bid) 1 tab DAILY PO Last administered on 10/04/16 08:57; Start 10/03/16 at 09:00 Losartan Potassium (Cozaar) 100 mg DAILY PO ; Start 10/03/16 at 09:00 Acetaminophen (Tylenol) 650 mg PRN Q6HRS PRN PO MILD PAIN / TEMP; Start at 18:15 Al Hydroxide/Mg Hydroxide (Mylanta Plus Xs) 30 ml PRN Q3HRS PRN PO HEARTBURN / GAS; Start 10/02/16 at 18:15 Calcium Carbonate/ Glycine (Tums) 500 mg PRN Q3HRS PRN PO INDIGESTION; Start at 18:15 Diphenhydramine HCl (Benadryl) 25 mg PRN Q6HRS PRN PO ITCHING; Start 10/02/16 at 18:15 Diphenhydramine HCl (Benadryl) 25 mg PRN Q6HRS PRN IV ITCHING; Start 10/02/16 at 18:15 Sodium Chloride 3 ml 3 ml QSHIFT PRN IV AFTER MEDS AND BLOOD DRAWS; Start 10/02 at 18:15 Potassium Chloride/Dextrose/ Sod Cl (KCl 20 Meq In D5W-1/2 NS) 1,000 ml @ 75 mls/hr [id number] IV ; Start 10/02/16 at 18:30 Oxycodone/ Acetaminophen (Percocet 5/325) 1 tab PRN Q4HRS PRN PO MILD PAIN, 1ST CHOICE Last administered on 10/04/16 05:00; Start 10/02/16 at 18:15 Oxycodone/ Acetaminophen (Percocet 5/325) 2 tab PRN Q4HRS PRN PO MODERATE PAIN , SEVERE PAIN Last administered on 10/04/16 13:00; Start 10/02/16 at 18:15 Methocarbamol (Robaxin) 750 mg TID PO Last administered on 10/04/16 12:59; Start 10/02/16 at 21:00 Docusate Sodium (Colace) 100 mg BID PO Last administered on 10/04/16 08:57; Start 10/02/16 at 21:00 Magnesium Hydroxide (Milk Of Magnesia) 2,400 mg PRN Q12HR PRN PO CONSTIPATION; Start 10/02/16 at 18:15 Ondansetron HCl 4 mg 4 mg PRN Q6HRS PRN IV NAUESA, 1ST CHOICE Last administered on 10/04/16 11:46; Start 10/02/16 at 18:15 Cefazolin Sodium/ Sodium Chloride (Ancef/Iv Sodium Chloride 0.9% 50ml) 50 ml @ 100 mls/hr Q8H IV Last administered on 10/03/16 11:38; Start 10/02/16 at 20:00 ; Stop 10/03/16 at 12:29; Status DC Fentanyl Citrate (Fentanyl 2ml Vial) 25 mcg PRN Q1HR PRN IV PAIN; Start at 18:15 Fentanyl Citrate (Fentanyl 2ml Vial) 50 mcg PRN Q1HR PRN IV PAIN Last administered on 10/04/16 00:17; Start 10/02/16 at 18:15 Cefazolin Sodium/ Dextrose (Ancef 2gm Premix) 2 gm STK-MED ONCE IV ; Start 10/02 at 16:00; Stop 10/03/16 at 08:08; Status DC Bisacodyl (Dulcolax Tab) 5 mg PRN DAILY PRN PO CONSTIPATION Last administered on 10/03/16 17:53; Start 10/03/16 at 13:30 Bisacodyl (Dulcolax Tab) 10 mg PRN DAILY PRN PO CONSTIPATION; Start 10/03/16 at 13:30 Sodium Chloride (Sodium Chloride) 50 ml STK-MED ONCE IJ ; Start 10/02/16 at 14: 05; Stop 10/04/16 at 11:58; Status DC Active Scripts Active Reported Vitamin D3 (Cholecalciferol (Vitamin D3)) 2,000 Unit Tablet 2,000 Unit PO DAILY Calcium 1,000 + D3 Caplet (Calcium Carbonate/Vitamin D3) 1 Each Tablet 1 Each PO DAILY Simvastatin 20 Mg Tablet 20 Mg PO HS Probiotic (Lactobacillus Combo No.11) 1 Each Cap.sprink 1 Each PO DAILY Protonix (Pantoprazole Sodium) 40 Mg Tablet.dr 40 Mg PO DAILY Escitalopram Oxalate 10 Mg Tablet 10 Mg PO DAILY Evista (Raloxifene Hcl) 60 Mg Tablet 60 Mg PO DAILY Losartan-Hctz 100-25 Mg Tab (Losartan/Hydrochlorothiazide) 1 Each Tablet 1 Each PO DAILY Ibuprofen 400 Mg Tablet 400 Mg PO PRN Q6HRS PRN Vitals/I & O Vital Sign - Last 24 Hours 10/03/16 10/03/16 10/03/16 10/03/16 15:15 15:27 19:41 20:00 Temp 97.9 97.9 97.9 97.9 Pulse 80 84 Resp 18 20 18 B/P 92/59 104/65 Pulse Ox 98 95 O2 Delivery Room Air Room Air Nasal Cannula O2 Flow Rate 2.0 10/03/16 10/03/16 10/04/16 10/04/16 23:13 23:45 03:01 05:00 Temp 98.1 98.1 98.1 98.1 Pulse 82 83 Resp 18 B/P 96/61 84/49 103/68 Pulse Ox 94 95 95 O2 Delivery Room Air Room Air O2 Flow Rate 2.0 10/04/16 10/04/16 10/04/16 10/04/16 07:00 08:56 09:00 09:56 Temp 98.1 98.1 Pulse 94 87 Resp 20 16 B/P 93/61 98/52 Pulse Ox 94 O2 Delivery Room Air Room Air Room Air 10/04/16 10/04/16 11:00 13:00 Temp 98.0 98.0 Pulse 87 Resp 16 B/P 98/52 Pulse Ox 96 O2 Delivery Room Air Room Air Intake and Output 10/03/16 10/03/16 10/04/16 15:00 23:00 07:00 Intake Total 800 ml 2080 ml 450 ml Balance 800 ml 2080 ml 450 ml NINA WALLER MD Oct 04, 2016 13:10
[2016-10-04] MEDS: ACETAMINOPHEN 325 MG TABLET. PO PRN (14:38)
[2016-10-04] MEDS: MAGNESIUM HYDROXIDE 2,400 MG/30 ML ORAL.SUSP. PO PRN (14:38)
[2016-10-04] MEDS: SIMVASTATIN 20 MG TABLET PO SCH (20:51)
[2016-10-05 03:04] VITALS: BP 120/70
[2016-10-05] MEDS: OXYCODONE/APAP 5/325 TABLET. PO PRN ×3 (03:35→20:16)
[2016-10-05] MEDS: BISACODYL 5 MG TABLET.DR. PO PRN (03:37)
[2016-10-05 07:00] VITALS: BP 118/77
[2016-10-05] MEDS: ONDANSETRON PF 4 MG/2 ML VIAL. IV PRN ×3 (08:30→20:10)
[2016-10-05] MEDS: MAGNESIUM HYDROXIDE 2,400 MG/30 ML ORAL.SUSP. PO PRN (08:32)
[2016-10-05] MEDS: ESCITALOPRAM 10 MG TABLET. PO SCH (08:34)
[2016-10-05] MEDS: ACETAMINOPHEN 325 MG TABLET. PO PRN (08:34)
[2016-10-05] MEDS: CHOLECALCIFEROL (VITAMIN D3) 1,000 UNIT TABLET PO SCH (08:35)
[2016-10-05] MEDS: LACTOBACILLUS ACIDOPH & BULGAR 1 TABLET. PO SCH (08:35)
[2016-10-05] MEDS: RALOXIFENE 60 MG TABLET. PO SCH (08:36)
[2016-10-05] MEDS: LOSARTAN POTASSIUM 50 MG TABLET. PO SCH (08:36)
[2016-10-05] MEDS: DOCUSATE SODIUM 100 MG CAPSULE PO SCH ×2 (08:37→20:16)
[2016-10-05] MEDS: PANTOPRAZOLE 40 MG TABLET. PO SCH (08:37)
[2016-10-05] MEDS: CALCIUM CARB/VIT D3 500/200 TABLET. PO SCH (08:37)
[2016-10-05] MEDS: METHOCARBAMOL 750 MG TABLET PO SCH ×3 (09:00→20:16)
[2016-10-05 11:00] VITALS: BP 113/69
--- NOTE | 2016-10-05 11:05 | PDOC ---
PROGRESS NOTES Subjective Subjective POD #3 Pain improved but c/o nausea and constipation passing gas Objective Objective Vital Signs Date Time Temp Pulse Resp B/P Pulse Ox O2 Delivery O2 Flow Rate FiO2 10/05/16 08:36 88 118/77 10/05/16 07:00 98.1 18 94 Room Air 98.1 10/03/16 23:45 2.0 Intake and Output 10/05/16 07:00 Intake Total 800 ml Balance 800 ml Intake Oral 800 ml # Voids 5 Physical Exam General: Alert, Oriented X3, Cooperative MUSCULOSKELETAL: Other (MACIAS) Neuro: Normal speech Skin: Other (dressing C,D,I, flat) Assessment Assessment Problems Medical Problems: (1) Spondylolisthesis Status: Acute Plan Plan of Care continue PT encouraged increased activity as tolerated consult Dr. Sneed may need rehab Comment Review of Relevant I have reviewed the following items meryl (where applicable) has been applied. Medications Current Medications Fentanyl Citrate (Fentanyl 2ml Vial) 25 mcg PRN Q5MIN PRN IV MILD PAIN; Start 10/02/16 at 07:00; Stop 10/02/16 at 18:00; Status DC Fentanyl Citrate (Fentanyl 2ml Vial) 50 mcg PRN Q5MIN PRN IV MODERATE PAIN Last administered on 10/02/16 17:35; Start 10/02/16 at 07:00; Stop 10/02/16 at 18:00; Status DC Morphine Sulfate 1 mg 1 mg PRN Q10MIN PRN IV SEVERE PAIN; Start 10/02/16 at 07: 00; Stop 10/02/16 at 18:00; Status DC Lactated Ringer's (Iv Lactated Ringers) 1,000 ml @ 30 mls/hr Q24H IV Last administered on 10/02/16 08:34; Start 10/02/16 at 07:00; Stop 10/02/16 at 18:59 ; Status DC Lidocaine HCl 2 ml 1X PRN PRN ID IV START; Start 10/02/16 at 07:00; Stop at 18:00; Status DC Hydromorphone HCl 0.5 mg 0.5 mg PRN Q10MIN PRN IV SEVERE PAIN, Second choice Last administered on 10/02/16 17:47; Start 10/02/16 at 07:00; Stop 10/02/16 at 18:00; Status DC Bacitracin 11324 unit/Sodium Chloride 1,000 ml @ 1,000 mls/hr 1X PERIOP ONCE IRR Last administered on 10/02/16 12:41; Start 10/02/16 at 08:00; Stop at 08:59; Status DC Cefazolin Sodium/ Dextrose (Ancef 2gm Premix) 50 ml @ 100 mls/hr 1X PREOP PRN IV PRIOR TO PROCEDURE Last administered on 10/02/16 16:04; Start 10/02/16 at 06 :00; Stop 10/02/16 at 18:00; Status DC Thrombin 20,000 unit STK-MED ONCE TP Last administered on 10/02/16 12:41; Start 10/02/16 at 06:44; Stop 10/02/16 at 06:45; Status DC Gelatin (Gelfoam Size 100) 1 each STK-MED ONCE .ROUTE Last administered on 12:41; Start 10/02/16 at 06:44; Stop 10/02/16 at 06:45; Status DC Ketorolac Tromethamine (Toradol For Or Only) 60 mg STK-MED ONCE .ROUTE Last administered on 10/02/16 12:41; Start 10/02/16 at 06:44; Stop 10/02/16 at 06:45 ; Status DC Bupivacaine HCl/ Epinephrine Bitart (Sensorcain-Mpf Epi 0.5%-1:626798) 30 ml STK -MED ONCE .ROUTE Last administered on 10/02/16 12:41; Start 10/02/16 at 06:44 ; Stop 10/02/16 at 06:45; Status DC Midazolam HCl (Versed) 2 mg STK-MED ONCE .ROUTE ; Start 10/02/16 at 10:39; Stop 10/02/16 at 10:40; Status DC Remifentanil HCl (Ultiva) 2 mg STK-MED ONCE IV ; Start 10/02/16 at 10:39; Stop 10/02/16 at 10:40; Status DC Fentanyl Citrate (Fentanyl 2ml Vial) 100 mcg STK-MED ONCE .ROUTE ; Start at 10:39; Stop 10/02/16 at 10:40; Status DC Glycopyrrolate (Robinul) 1 mg STK-MED ONCE .ROUTE ; Start 10/02/16 at 10:39; Stop 10/02/16 at 10:40; Status DC Rocuronium Fitzpatrick (Zemuron) 50 mg STK-MED ONCE .ROUTE ; Start 10/02/16 at 10:39 ; Stop 10/02/16 at 10:40; Status DC Desflurane (Suprane) 90 ml STK-MED ONCE IH ; Start 10/02/16 at 10:41; Stop 10/02 at 10:42; Status DC Lidocaine HCl 100 mg STK-MED ONCE .ROUTE ; Start 10/02/16 at 10:42; Stop at 10:43; Status DC Dexamethasone Sodium Phosphate 20 mg 20 mg STK-MED ONCE .ROUTE ; Start 10/02/16 at 10:42; Stop 10/02/16 at 10:43; Status DC Propofol 20 ml @ As Directed STK-MED ONCE IV ; Start 10/02/16 at 10:42; Stop at 10:43; Status DC Propofol (Diprivan) 50 ml @ As Directed STK-MED ONCE IV ; Start 10/02/16 at 10: 42; Stop 10/02/16 at 10:43; Status DC Ondansetron HCl (Zofran) 4 mg STK-MED ONCE .ROUTE ; Start 10/02/16 at 10:42; Stop 10/02/16 at 10:43; Status DC Phenylephrine HCl (Prashanth-Synephrine Inj) 10 mg STK-MED ONCE .ROUTE ; Start at 10:42; Stop 10/02/16 at 10:43; Status DC Scopolamine 1 patch 1 patch STK-MED ONCE TD ; Start 10/02/16 at 11:43; Stop at 11:44; Status DC Propofol (Diprivan) 50 ml @ As Directed STK-MED ONCE IV ; Start 10/02/16 at 13: 04; Stop 10/02/16 at 13:05; Status DC Remifentanil HCl 2 mg 2 mg STK-MED ONCE IV ; Start 10/02/16 at 14:05; Stop 10/02 at 14:06; Status DC Propofol (Diprivan) 50 ml @ As Directed STK-MED ONCE IV ; Start 10/02/16 at 14: 40; Stop 10/02/16 at 14:41; Status DC Phenylephrine HCl (Prashanth-Synephrine Inj) 10 mg STK-MED ONCE .ROUTE ; Start at 15:55; Stop 10/02/16 at 15:56; Status DC Hydromorphone HCl (Dilaudid) 0.5 mg PRN Q10MIN PRN IV SEVERE PAIN, Second choice Last administered on 10/02/16 17:59; Start 10/02/16 at 18:15; Stop 10/03 at 06:00; Status DC Fentanyl Citrate (Fentanyl 2ml Vial) 50 mcg PRN Q5MIN PRN IV MODERATE PAIN Last administered on 10/02/16 18:09; Start 10/02/16 at 18:15; Stop 10/03/16 at 06:00; Status DC Escitalopram Oxalate (Lexapro) 10 mg DAILY PO Last administered on 10/05/16 08 :34; Start 10/03/16 at 09:00 Pantoprazole Sodium (Protonix) 40 mg DAILYAC PO Last administered on 10/05/16 08:37; Start 10/03/16 at 07:30 Raloxifene HCl (Evista) 60 mg DAILY PO Last administered on 10/05/16 08:36; Start 10/03/16 at 09:00 Simvastatin (Zocor) 20 mg HS PO Last administered on 10/04/16 20:51; Start at 21:00 Calcium/Vitamin D (Oscal D 500mg/ 200uts) 1 tab DAILYWBKFT PO Last administered on 10/05/16 08:37; Start 10/03/16 at 08:00 Vitamin D (Vitamin D3) 2,000 unit DAILY PO Last administered on 10/05/16 08:35 ; Start 10/03/16 at 09:00 Lactobacillus Acidophilus (Bacid, Lyric-Bid) 1 tab DAILY PO Last administered on 10/05/16 08:35; Start 10/03/16 at 09:00 Losartan Potassium (Cozaar) 100 mg DAILY PO Last administered on 10/05/16 08: 36; Start 10/03/16 at 09:00 Acetaminophen (Tylenol) 650 mg PRN Q6HRS PRN PO MILD PAIN / TEMP Last administered on 10/05/16 08:34; Start 10/02/16 at 18:15 Al Hydroxide/Mg Hydroxide (Mylanta Plus Xs) 30 ml PRN Q3HRS PRN PO HEARTBURN / GAS Last administered on 10/05/16 08:34; Start 10/02/16 at 18:15 Calcium Carbonate/ Glycine (Tums) 500 mg PRN Q3HRS PRN PO INDIGESTION; Start at 18:15 Diphenhydramine HCl (Benadryl) 25 mg PRN Q6HRS PRN PO ITCHING; Start 10/02/16 at 18:15 Diphenhydramine HCl (Benadryl) 25 mg PRN Q6HRS PRN IV ITCHING; Start 10/02/16 at 18:15 Sodium Chloride 3 ml 3 ml QSHIFT PRN IV AFTER MEDS AND BLOOD DRAWS; Start 10/02 at 18:15 Potassium Chloride/Dextrose/ Sod Cl (KCl 20 Meq In D5W-1/2 NS) 1,000 ml @ 75 mls/hr [id number] IV ; Start 10/02/16 at 18:30 Oxycodone/ Acetaminophen (Percocet 5/325) 1 tab PRN Q4HRS PRN PO MILD PAIN, 1ST CHOICE Last administered on 10/04/16 05:00; Start 10/02/16 at 18:15 Oxycodone/ Acetaminophen (Percocet 5/325) 2 tab PRN Q4HRS PRN PO MODERATE PAIN , SEVERE PAIN Last administered on 10/05/16 03:35; Start 10/02/16 at 18:15 Methocarbamol (Robaxin) 750 mg TID PO Last administered on 10/04/16 20:51; Start 10/02/16 at 21:00 Docusate Sodium (Colace) 100 mg BID PO Last administered on 10/05/16 08:37; Start 10/02/16 at 21:00 Magnesium Hydroxide (Milk Of Magnesia) 2,400 mg PRN Q12HR PRN PO CONSTIPATION Last administered on 10/05/16 08:32; Start 10/02/16 at 18:15 Ondansetron HCl 4 mg 4 mg PRN Q6HRS PRN IV NAUESA, 1ST CHOICE Last administered on 10/05/16 08:30; Start 10/02/16 at 18:15 Cefazolin Sodium/ Sodium Chloride (Ancef/Iv Sodium Chloride 0.9% 50ml) 50 ml @ 100 mls/hr Q8H IV Last administered on 10/03/16 11:38; Start 10/02/16 at 20:00 ; Stop 10/03/16 at 12:29; Status DC Fentanyl Citrate (Fentanyl 2ml Vial) 25 mcg PRN Q1HR PRN IV PAIN; Start at 18:15 Fentanyl Citrate (Fentanyl 2ml Vial) 50 mcg PRN Q1HR PRN IV PAIN Last administered on 10/04/16 16:08; Start 10/02/16 at 18:15 Cefazolin Sodium/ Dextrose (Ancef 2gm Premix) 2 gm STK-MED ONCE IV ; Start 10/02 at 16:00; Stop 10/03/16 at 08:08; Status DC Bisacodyl (Dulcolax Tab) 5 mg PRN DAILY PRN PO CONSTIPATION Last administered on 10/05/16 03:37; Start 10/03/16 at 13:30 Bisacodyl (Dulcolax Tab) 10 mg PRN DAILY PRN PO CONSTIPATION; Start 10/03/16 at 13:30 Sodium Chloride (Sodium Chloride) 50 ml STK-MED ONCE IJ ; Start 10/02/16 at 14: 05; Stop 10/04/16 at 11:58; Status DC Active Scripts Active Reported Vitamin D3 (Cholecalciferol (Vitamin D3)) 2,000 Unit Tablet 2,000 Unit PO DAILY Calcium 1,000 + D3 Caplet (Calcium Carbonate/Vitamin D3) 1 Each Tablet 1 Each PO DAILY Simvastatin 20 Mg Tablet 20 Mg PO HS Probiotic (Lactobacillus Combo No.11) 1 Each Cap.sprink 1 Each PO DAILY Protonix (Pantoprazole Sodium) 40 Mg Tablet.dr 40 Mg PO DAILY Escitalopram Oxalate 10 Mg Tablet 10 Mg PO DAILY Evista (Raloxifene Hcl) 60 Mg Tablet 60 Mg PO DAILY Losartan-Hctz 100-25 Mg Tab (Losartan/Hydrochlorothiazide) 1 Each Tablet 1 Each PO DAILY Ibuprofen 400 Mg Tablet 400 Mg PO PRN Q6HRS PRN Vitals/I & O Vital Sign - Last 24 Hours 10/04/16 10/04/16 10/04/16 10/04/16 13:00 14:41 16:08 16:38 Temp 98.1 98.1 Pulse 91 Resp 18 B/P 124/70 Pulse Ox 97 O2 Delivery Room Air Room Air Room Air Room Air 10/04/16 10/04/16 10/04/16 10/04/16 18:50 19:29 19:45 23:01 Temp 98.3 98.7 98.3 98.7 Pulse 84 89 Resp 18 B/P 97/63 103/61 Pulse Ox 95 95 O2 Delivery Room Air Room Air Room Air Room Air 10/04/16 10/05/16 10/05/16 10/05/16 23:02 03:04 03:35 04:35 Temp 98.1 98.1 Pulse 86 Resp 18 B/P 120/70 Pulse Ox 94 O2 Delivery Room Air Room Air Room Air Room Air 10/05/16 10/05/16 07:00 08:36 Temp 98.1 98.1 Pulse 90 88 Resp 18 B/P 118/77 118/77 Pulse Ox 94 O2 Delivery Room Air Intake and Output 10/04/16 10/04/16 10/05/16 15:00 23:00 07:00 Intake Total 360 ml 440 ml Balance 360 ml 440 ml NINA WALLER MD Oct 05, 2016 11:05
[2016-10-05] MEDS ORDERED: SODIUM PHOSPHATES 19/7GM 133 ML ENEMA. PR ONE (11:15)
[2016-10-05] MEDS: FENTANYL PF 100 MCG/2 ML VIAL. IV PRN (13:10)
[2016-10-05] MEDS: POTASSIUM CL 20MEQ D5-0.45NACL 1,000 ML IV SCH (13:10)
[2016-10-05] MEDS ORDERED: PHENYLEPH/MINERAL OIL/PETROLAT RECTAL OINTMENT 28GM TUBE. RC PRN (14:45)
[2016-10-05 15:00] VITALS: BP 132/60
[2016-10-05 19:05] VITALS: BP 99/45
[2016-10-05] MEDS: SIMVASTATIN 20 MG TABLET PO SCH (20:17)
[2016-10-05 23:22] VITALS: BP 92/50
[2016-10-06 02:00] VITALS: BP 112/59
[2016-10-06] MEDS: ONDANSETRON PF 4 MG/2 ML VIAL. IV PRN ×4 (02:05→20:23)
[2016-10-06] MEDS: OXYCODONE/APAP 5/325 TABLET. PO PRN ×5 (02:06→20:22)
[2016-10-06] MEDS: POTASSIUM CL 20MEQ D5-0.45NACL 1,000 ML IV SCH ×2 (02:30→14:22)
[2016-10-06 07:00] VITALS: BP 112/61
[2016-10-06] MEDS: PANTOPRAZOLE 40 MG TABLET. PO SCH (08:16)
[2016-10-06] MEDS: LACTOBACILLUS ACIDOPH & BULGAR 1 TABLET. PO SCH (08:16)
[2016-10-06] MEDS: METHOCARBAMOL 750 MG TABLET PO SCH ×3 (08:17→20:21)
[2016-10-06] MEDS: CHOLECALCIFEROL (VITAMIN D3) 1,000 UNIT TABLET PO SCH (08:17)
[2016-10-06] MEDS: RALOXIFENE 60 MG TABLET. PO SCH (08:18)
[2016-10-06] MEDS: ESCITALOPRAM 10 MG TABLET. PO SCH (08:19)
[2016-10-06] MEDS: DOCUSATE SODIUM 100 MG CAPSULE PO SCH (08:19)
[2016-10-06] MEDS: CALCIUM CARB/VIT D3 500/200 TABLET. PO SCH (08:25)
[2016-10-06] MEDS: LOSARTAN POTASSIUM 50 MG TABLET. PO SCH (08:27)
--- NOTE | 2016-10-06 09:43 | PDOC ---
PROGRESS NOTES Subjective Subjective POD #4 up in chair with brace on back pain improving still some shooting pain into legs but improving ambulates to BR with walker Objective Objective Vital Signs Date Time Temp Pulse Resp B/P Pulse Ox O2 Delivery O2 Flow Rate FiO2 10/06/16 08:27 83 112/61 10/06/16 08:18 18 Room Air 10/06/16 07:00 97.6 96 97.6 10/03/16 23:45 2.0 Intake and Output 10/06/16 07:00 Output Total 1800 ml Balance -1800 ml Output Urine Total 1800 ml # Voids 5 # Bowel Movements 2 Physical Exam General: Alert, Oriented X3, Cooperative, No acute distress MUSCULOSKELETAL: Other (MACIAS) Neuro: Normal speech Psych/Mental Status: Mental status NL Skin: Other (dressing changed, incision dry, steri strips intact) Assessment Assessment Problems Medical Problems: (1) Spondylolisthesis Status: Acute Plan Plan of Care encouraged increased actiity as tolerated Dr. Sneed consulted for rehab recommendations Comment Review of Relevant I have reviewed the following items meryl (where applicable) has been applied. Medications Current Medications Fentanyl Citrate (Fentanyl 2ml Vial) 25 mcg PRN Q5MIN PRN IV MILD PAIN; Start 10/02/16 at 07:00; Stop 10/02/16 at 18:00; Status DC Fentanyl Citrate (Fentanyl 2ml Vial) 50 mcg PRN Q5MIN PRN IV MODERATE PAIN Last administered on 10/02/16 17:35; Start 10/02/16 at 07:00; Stop 10/02/16 at 18:00; Status DC Morphine Sulfate 1 mg 1 mg PRN Q10MIN PRN IV SEVERE PAIN; Start 10/02/16 at 07: 00; Stop 10/02/16 at 18:00; Status DC Lactated Ringer's (Iv Lactated Ringers) 1,000 ml @ 30 mls/hr Q24H IV Last administered on 10/02/16 08:34; Start 10/02/16 at 07:00; Stop 10/02/16 at 18:59 ; Status DC Lidocaine HCl 2 ml 1X PRN PRN ID IV START; Start 10/02/16 at 07:00; Stop at 18:00; Status DC Hydromorphone HCl 0.5 mg 0.5 mg PRN Q10MIN PRN IV SEVERE PAIN, Second choice Last administered on 10/02/16 17:47; Start 10/02/16 at 07:00; Stop 10/02/16 at 18:00; Status DC Bacitracin 73259 unit/Sodium Chloride 1,000 ml @ 1,000 mls/hr 1X PERIOP ONCE IRR Last administered on 10/02/16 12:41; Start 10/02/16 at 08:00; Stop at 08:59; Status DC Cefazolin Sodium/ Dextrose (Ancef 2gm Premix) 50 ml @ 100 mls/hr 1X PREOP PRN IV PRIOR TO PROCEDURE Last administered on 10/02/16 16:04; Start 10/02/16 at 06 :00; Stop 10/02/16 at 18:00; Status DC Thrombin 20,000 unit STK-MED ONCE TP Last administered on 10/02/16 12:41; Start 10/02/16 at 06:44; Stop 10/02/16 at 06:45; Status DC Gelatin (Gelfoam Size 100) 1 each STK-MED ONCE .ROUTE Last administered on 12:41; Start 10/02/16 at 06:44; Stop 10/02/16 at 06:45; Status DC Ketorolac Tromethamine (Toradol For Or Only) 60 mg STK-MED ONCE .ROUTE Last administered on 10/02/16 12:41; Start 10/02/16 at 06:44; Stop 10/02/16 at 06:45 ; Status DC Bupivacaine HCl/ Epinephrine Bitart (Sensorcain-Mpf Epi 0.5%-1:726099) 30 ml STK -MED ONCE .ROUTE Last administered on 10/02/16 12:41; Start 10/02/16 at 06:44 ; Stop 10/02/16 at 06:45; Status DC Midazolam HCl (Versed) 2 mg STK-MED ONCE .ROUTE ; Start 10/02/16 at 10:39; Stop 10/02/16 at 10:40; Status DC Remifentanil HCl (Ultiva) 2 mg STK-MED ONCE IV ; Start 10/02/16 at 10:39; Stop 10/02/16 at 10:40; Status DC Fentanyl Citrate (Fentanyl 2ml Vial) 100 mcg STK-MED ONCE .ROUTE ; Start at 10:39; Stop 10/02/16 at 10:40; Status DC Glycopyrrolate (Robinul) 1 mg STK-MED ONCE .ROUTE ; Start 10/02/16 at 10:39; Stop 10/02/16 at 10:40; Status DC Rocuronium Drummond (Zemuron) 50 mg STK-MED ONCE .ROUTE ; Start 10/02/16 at 10:39 ; Stop 10/02/16 at 10:40; Status DC Desflurane (Suprane) 90 ml STK-MED ONCE IH ; Start 10/02/16 at 10:41; Stop 10/02 at 10:42; Status DC Lidocaine HCl 100 mg STK-MED ONCE .ROUTE ; Start 10/02/16 at 10:42; Stop at 10:43; Status DC Dexamethasone Sodium Phosphate 20 mg 20 mg STK-MED ONCE .ROUTE ; Start 10/02/16 at 10:42; Stop 10/02/16 at 10:43; Status DC Propofol 20 ml @ As Directed STK-MED ONCE IV ; Start 10/02/16 at 10:42; Stop at 10:43; Status DC Propofol (Diprivan) 50 ml @ As Directed STK-MED ONCE IV ; Start 10/02/16 at 10: 42; Stop 10/02/16 at 10:43; Status DC Ondansetron HCl (Zofran) 4 mg STK-MED ONCE .ROUTE ; Start 10/02/16 at 10:42; Stop 10/02/16 at 10:43; Status DC Phenylephrine HCl (Prashanth-Synephrine Inj) 10 mg STK-MED ONCE .ROUTE ; Start at 10:42; Stop 10/02/16 at 10:43; Status DC Scopolamine 1 patch 1 patch STK-MED ONCE TD ; Start 10/02/16 at 11:43; Stop at 11:44; Status DC Propofol (Diprivan) 50 ml @ As Directed STK-MED ONCE IV ; Start 10/02/16 at 13: 04; Stop 10/02/16 at 13:05; Status DC Remifentanil HCl 2 mg 2 mg STK-MED ONCE IV ; Start 10/02/16 at 14:05; Stop 10/02 at 14:06; Status DC Propofol (Diprivan) 50 ml @ As Directed STK-MED ONCE IV ; Start 10/02/16 at 14: 40; Stop 10/02/16 at 14:41; Status DC Phenylephrine HCl (Prashanth-Synephrine Inj) 10 mg STK-MED ONCE .ROUTE ; Start at 15:55; Stop 10/02/16 at 15:56; Status DC Hydromorphone HCl (Dilaudid) 0.5 mg PRN Q10MIN PRN IV SEVERE PAIN, Second choice Last administered on 10/02/16 17:59; Start 10/02/16 at 18:15; Stop 10/03 at 06:00; Status DC Fentanyl Citrate (Fentanyl 2ml Vial) 50 mcg PRN Q5MIN PRN IV MODERATE PAIN Last administered on 10/02/16 18:09; Start 10/02/16 at 18:15; Stop 10/03/16 at 06:00; Status DC Escitalopram Oxalate (Lexapro) 10 mg DAILY PO Last administered on 10/06/16 08 :19; Start 10/03/16 at 09:00 Pantoprazole Sodium (Protonix) 40 mg DAILYAC PO Last administered on 10/06/16 08:16; Start 10/03/16 at 07:30 Raloxifene HCl (Evista) 60 mg DAILY PO Last administered on 10/06/16 08:18; Start 10/03/16 at 09:00 Simvastatin (Zocor) 20 mg HS PO Last administered on 10/05/16 20:17; Start at 21:00 Calcium/Vitamin D (Oscal D 500mg/ 200uts) 1 tab DAILYWBKFT PO Last administered on 10/06/16 08:25; Start 10/03/16 at 08:00 Vitamin D (Vitamin D3) 2,000 unit DAILY PO Last administered on 10/06/16 08:17 ; Start 10/03/16 at 09:00 Lactobacillus Acidophilus (Bacid, Lyric-Bid) 1 tab DAILY PO Last administered on 10/06/16 08:16; Start 10/03/16 at 09:00 Losartan Potassium (Cozaar) 100 mg DAILY PO Last administered on 10/06/16 08: 27; Start 10/03/16 at 09:00 Acetaminophen (Tylenol) 650 mg PRN Q6HRS PRN PO MILD PAIN / TEMP Last administered on 10/05/16 08:34; Start 10/02/16 at 18:15 Al Hydroxide/Mg Hydroxide (Mylanta Plus Xs) 30 ml PRN Q3HRS PRN PO HEARTBURN / GAS Last administered on 10/05/16 08:34; Start 10/02/16 at 18:15 Calcium Carbonate/ Glycine (Tums) 500 mg PRN Q3HRS PRN PO INDIGESTION; Start at 18:15 Diphenhydramine HCl (Benadryl) 25 mg PRN Q6HRS PRN PO ITCHING; Start 10/02/16 at 18:15 Diphenhydramine HCl (Benadryl) 25 mg PRN Q6HRS PRN IV ITCHING; Start 10/02/16 at 18:15 Sodium Chloride 3 ml 3 ml QSHIFT PRN IV AFTER MEDS AND BLOOD DRAWS; Start 10/02 at 18:15 Potassium Chloride/Dextrose/ Sod Cl (KCl 20 Meq In D5W-1/2 NS) 1,000 ml @ 75 mls/hr [id number] IV ; Start 10/02/16 at 18:30 Oxycodone/ Acetaminophen (Percocet 5/325) 1 tab PRN Q4HRS PRN PO MILD PAIN, 1ST CHOICE Last administered on 10/06/16 08:18; Start 10/02/16 at 18:15 Oxycodone/ Acetaminophen (Percocet 5/325) 2 tab PRN Q4HRS PRN PO MODERATE PAIN , SEVERE PAIN Last administered on 10/06/16 02:06; Start 10/02/16 at 18:15 Methocarbamol (Robaxin) 750 mg TID PO Last administered on 10/06/16 08:17; Start 10/02/16 at 21:00 Docusate Sodium (Colace) 100 mg BID PO Last administered on 10/06/16 08:19; Start 10/02/16 at 21:00 Magnesium Hydroxide (Milk Of Magnesia) 2,400 mg PRN Q12HR PRN PO CONSTIPATION Last administered on 10/05/16 08:32; Start 10/02/16 at 18:15 Ondansetron HCl 4 mg 4 mg PRN Q6HRS PRN IV NAUESA, 1ST CHOICE Last administered on 10/06/16 08:12; Start 10/02/16 at 18:15 Cefazolin Sodium/ Sodium Chloride (Ancef/Iv Sodium Chloride 0.9% 50ml) 50 ml @ 100 mls/hr Q8H IV Last administered on 10/03/16 11:38; Start 10/02/16 at 20:00 ; Stop 10/03/16 at 12:29; Status DC Fentanyl Citrate (Fentanyl 2ml Vial) 25 mcg PRN Q1HR PRN IV PAIN; Start at 18:15 Fentanyl Citrate (Fentanyl 2ml Vial) 50 mcg PRN Q1HR PRN IV PAIN Last administered on 10/05/16 13:10; Start 10/02/16 at 18:15 Cefazolin Sodium/ Dextrose (Ancef 2gm Premix) 2 gm STK-MED ONCE IV ; Start 10/02 at 16:00; Stop 10/03/16 at 08:08; Status DC Bisacodyl (Dulcolax Tab) 5 mg PRN DAILY PRN PO CONSTIPATION Last administered on 10/05/16 03:37; Start 10/03/16 at 13:30 Bisacodyl (Dulcolax Tab) 10 mg PRN DAILY PRN PO CONSTIPATION; Start 10/03/16 at 13:30 Sodium Chloride (Sodium Chloride) 50 ml STK-MED ONCE IJ ; Start 10/02/16 at 14: 05; Stop 10/04/16 at 11:58; Status DC Sodium Biphosphate/ Sodium Phosphate (Fleet Adult) 133 ml 1X ONCE NM Last administered on 10/05/16 11:40; Start 10/05/16 at 11:15; Stop 10/05/16 at 11:16 ; Status DC Phenyleph/Shark Oil/Min Oil/Petrol (Preparation H) 1 samreen PRN Q6HRS PRN RC RECTAL PAIN Last administered on 10/05/16 15:05; Start 10/05/16 at 14:45 Active Scripts Active Reported Vitamin D3 (Cholecalciferol (Vitamin D3)) 2,000 Unit Tablet 2,000 Unit PO DAILY Calcium 1,000 + D3 Caplet (Calcium Carbonate/Vitamin D3) 1 Each Tablet 1 Each PO DAILY Simvastatin 20 Mg Tablet 20 Mg PO HS Probiotic (Lactobacillus Combo No.11) 1 Each Cap.sprink 1 Each PO DAILY Protonix (Pantoprazole Sodium) 40 Mg Tablet.dr 40 Mg PO DAILY Escitalopram Oxalate 10 Mg Tablet 10 Mg PO DAILY Evista (Raloxifene Hcl) 60 Mg Tablet 60 Mg PO DAILY Losartan-Hctz 100-25 Mg Tab (Losartan/Hydrochlorothiazide) 1 Each Tablet 1 Each PO DAILY Ibuprofen 400 Mg Tablet 400 Mg PO PRN Q6HRS PRN Vitals/I & O Vital Sign - Last 24 Hours 10/05/16 10/05/16 10/05/16 10/05/16 11:00 13:10 13:40 15:00 Temp 98.2 98.0 98.2 98.0 Pulse 85 88 Resp 18 18 18 20 B/P 113/69 132/60 Pulse Ox 93 95 O2 Delivery Room Air Room Air Room Air Room Air 10/05/16 10/05/16 10/05/16 10/05/16 15:05 16:05 19:05 20:00 Temp 98.6 98.6 Pulse 85 Resp 18 18 18 B/P 99/45 Pulse Ox 97 O2 Delivery Room Air Room Air Room Air Room Air 10/05/16 10/06/16 10/06/16 10/06/16 23:22 02:00 07:00 08:18 Temp 98.4 98.2 97.6 98.4 98.2 97.6 Pulse 88 88 86 Resp 18 18 18 18 B/P 92/50 112/59 112/61 Pulse Ox 94 97 96 O2 Delivery Room Air Room Air Room Air Room Air 10/06/16 08:27 Pulse 83 B/P 112/61 Intake and Output 10/05/16 10/05/16 10/06/16 15:00 23:00 07:00 Output Total 1800 ml Balance -1800 ml NINA WALLER MD Oct 06, 2016 09:42
[2016-10-06 11:00] VITALS: BP 109/66
[2016-10-06] MEDS: ACETAMINOPHEN 325 MG TABLET. PO PRN (12:28)
--- NOTE | 2016-10-06 14:44 | PATHOLOGY ---
PATHOLOGY REPORT * * * * * * * * FINAL DIAGNOSIS: Segments of fibrocartilaginous, fibroadipose, and skeletal muscle tissue and bone, lumbar disc and decompression: - Degenerative changes of fibrocartilaginous tissue. COMMENT: There is no evidence of an acute inflammatory process or malignancy. (JPM:; d/t: 10/06/16) REPORT ELECTRONICALLY SIGNED BY: Patrice Reyna M.D. DATE/TIME: 10/06/2016 14:41 * * * * * * * * GROSS PATHOLOGY: Received in formalin labeled "Diane Catherine - lumbar disc and decompression," are multiple segments of white-cho to cho-brown, rubbery, and gritty tissue admixed with bone, measuring 7.7 x 6.8 x 1.7 cm in aggregate dimensions. The tissue is submitted representatively in cassette A1, following decalcification. (TTL; 10/03/2016) INITIAL CPT CODE(S): A; 13107, 49540 Professional services performed [place] [facility] [place] [address] Technical services performed by [facility] at [address] [place] [address] [address], [place] [address]. SPECIMEN(S) RECEIVED: A.Lumbar disc and decompression CLINICAL HISTORY: Spondylolisthesis, stenosis, herniated disc, radiculopathy PATIENT: DIANE CATHERINE /AGE: 2 1950 (Age: 66) PATIENT #: [id number] ALT CASE #: SPECIMEN COLLECTION DATE: 10/02/2016 SPECIMEN RECEIVED DATE: 10/03/2016 [facility] - [address] [place] [address] - PHONE: [phone] * * * END OF REPORT * * *
[2016-10-06 15:00] VITALS: BP 113/62
[2016-10-06 19:20] VITALS: BP 120/77
[2016-10-06] MEDS: DOCUSATE SODIUM 100 MG CAPSULE. PO SCH (20:21)
[2016-10-06] MEDS: SIMVASTATIN 20 MG TABLET PO SCH (20:21)
[2016-10-06 22:59] VITALS: BP 104/63
[2016-10-07 03:20] VITALS: BP 113/65
--- NOTE | 2016-10-07 04:11 | CONS ---
DATE OF CONSULTATION: ATTENDING PHYSICIAN: Dr. Rahman. The patient was seen at the request of Dr. Rahman for rehab evaluation. FAMILY PHYSICIAN: Dr. Lozano. 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 The patient with chronic lower back pain with lumbar radiculitis, underwent lumbar decompression laminectomy and fusion for treatment of spondylolisthesis with right lumbar radiculitis and right foot drop. The patient admits continued lower back pain with radiation to her right lower extremity with associated tingling and numbness. The patient denies any trouble with her bowels, but has to have an enema yesterday. She admits that she is urinating small amounts. She denies any dysuria. The patient lived prior to the present hospitalization with her who had dementia and on hospice care. 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 The patient lives in a multilevel home, had stairs to manage. PHYSICAL EXAMINATION: Today revealed a middle-aged female. She is alert, oriented to time, place, person and circumstance and follows commands appropriately, moves all 4 extremities voluntarily where she had 4/5 grade muscle strength. Deep tendon reflexes are absent at both ankles and at right knee. She had decreased touch and pinprick sensation over the right L5 dermatome area. Negative Tinel's sign over the peroneal nerve at the fibular neck area. She had tenderness to palpation over the lumbar paraspinal muscles. She had dressing to her lumbar spine area. Straight leg raising test is negative bilaterally. She is independent with bed mobility and transfers and up walking using a roller walker. She is not using proper body mechanics all the time. She needs some help in donning and doffing of her lumbar corset. ASSESSMENT: A middle-aged female, postop lumbar decompression laminectomy for treatment of lumbar spondylolisthesis with lumbar spinal stenosis with residual right lumbar radiculitis, clinical evidence of peripheral neuropathy. RECOMMENDATIONS: Agree with the plan for physical therapy, to also ask occupational therapy to work on mainly in donning and doffing of her lumbar corset. I have suggested transfer to inpatient rehab if she is somewhat afraid of going home and taking care of her , but she wants to go to the rehab maybe 1 or 2 days. I told her that probably it is not a good idea to go to rehab for 1 or 2 days only. She agreed to go home with home health or outpatient followup tomorrow to check to make sure she is emptying her bladder completely. Dr. Rahman, I appreciate asking me to participate in the care of this interesting patient. I will be glad to follow her with you as needed for rehabilitation. ANABELL ZAPIEN MD DR: GISSEL/pieter JOB#: [id number] / [id number] NINA Dorsey MD, HALLA MD
[2016-10-07] MEDS: OXYCODONE/APAP 5/325 TABLET. PO PRN (04:17)
[2016-10-07] MEDS: ONDANSETRON PF 4 MG/2 ML VIAL. IV PRN ×2 (04:17→10:28)
[2016-10-07 07:00] VITALS: BP 138/79
[2016-10-07] MEDS: ACETAMINOPHEN 325 MG TABLET. PO PRN ×2 (08:10→14:08)
[2016-10-07] MEDS: METHOCARBAMOL 750 MG TABLET PO SCH ×2 (08:10→13:22)
[2016-10-07] MEDS: PANTOPRAZOLE 40 MG TABLET. PO SCH (08:10)
[2016-10-07] MEDS: CALCIUM CARB/VIT D3 500/200 TABLET. PO SCH (08:10)
[2016-10-07] MEDS: LACTOBACILLUS ACIDOPH & BULGAR 1 TABLET. PO SCH (08:10)
[2016-10-07] MEDS: ESCITALOPRAM 10 MG TABLET. PO SCH (08:11)
[2016-10-07] MEDS: RALOXIFENE 60 MG TABLET. PO SCH (08:11)
[2016-10-07] MEDS: CHOLECALCIFEROL (VITAMIN D3) 1,000 UNIT TABLET PO SCH (08:11)
[2016-10-07] MEDS: LOSARTAN POTASSIUM 50 MG TABLET. PO SCH (08:11)
[2016-10-07] MEDS: DOCUSATE SODIUM 100 MG CAPSULE. PO SCH (08:11)
--- NOTE | 2016-10-07 10:06 | PDOC ---
PROGRESS NOTES Subjective Subjective She does not feel good and having nausea and headache and continues with right lower extremity pain. Objective Objective Vital Signs Date Time Temp Pulse Resp B/P Pulse Ox O2 Delivery O2 Flow Rate FiO2 10/07/16 08:11 83 138/79 10/07/16 07:57 Room Air 10/07/16 07:00 98.4 20 98 98.4 10/06/16 08:00 2.0 Intake and Output 10/07/16 07:00 Intake Total 700 ml Balance 700 ml Intake Oral 700 ml # Voids 4 Physical Exam Physical Exam She is alert,sitting up in bedside chair and no change with her neurological condition. Assessment Assessment Problems Medical Problems: (1) Spondylolisthesis Status: Acute Plan Plan of Long Term today with home health follow up unless she qualifies for in patient rehab for a few days as she is concerned about her being forced to help her dementia , Comment Review of Relevant I have reviewed the following items meryl (where applicable) has been applied. Medications Current Medications Fentanyl Citrate (Fentanyl 2ml Vial) 25 mcg PRN Q5MIN PRN IV MILD PAIN; Start 10/02/16 at 07:00; Stop 10/02/16 at 18:00; Status DC Fentanyl Citrate (Fentanyl 2ml Vial) 50 mcg PRN Q5MIN PRN IV MODERATE PAIN Last administered on 10/02/16 17:35; Start 10/02/16 at 07:00; Stop 10/02/16 at 18:00; Status DC Morphine Sulfate 1 mg 1 mg PRN Q10MIN PRN IV SEVERE PAIN; Start 10/02/16 at 07: 00; Stop 10/02/16 at 18:00; Status DC Lactated Ringer's (Iv Lactated Ringers) 1,000 ml @ 30 mls/hr Q24H IV Last administered on 10/02/16 08:34; Start 10/02/16 at 07:00; Stop 10/02/16 at 18:59 ; Status DC Lidocaine HCl 2 ml 1X PRN PRN ID IV START; Start 10/02/16 at 07:00; Stop at 18:00; Status DC Hydromorphone HCl 0.5 mg 0.5 mg PRN Q10MIN PRN IV SEVERE PAIN, Second choice Last administered on 10/02/16 17:47; Start 10/02/16 at 07:00; Stop 10/02/16 at 18:00; Status DC Bacitracin 44459 unit/Sodium Chloride 1,000 ml @ 1,000 mls/hr 1X PERIOP ONCE IRR Last administered on 10/02/16 12:41; Start 10/02/16 at 08:00; Stop at 08:59; Status DC Cefazolin Sodium/ Dextrose (Ancef 2gm Premix) 50 ml @ 100 mls/hr 1X PREOP PRN IV PRIOR TO PROCEDURE Last administered on 10/02/16 16:04; Start 10/02/16 at 06 :00; Stop 10/02/16 at 18:00; Status DC Thrombin 20,000 unit STK-MED ONCE TP Last administered on 10/02/16 12:41; Start 10/02/16 at 06:44; Stop 10/02/16 at 06:45; Status DC Gelatin (Gelfoam Size 100) 1 each STK-MED ONCE .ROUTE Last administered on 12:41; Start 10/02/16 at 06:44; Stop 10/02/16 at 06:45; Status DC Ketorolac Tromethamine (Toradol For Or Only) 60 mg STK-MED ONCE .ROUTE Last administered on 10/02/16 12:41; Start 10/02/16 at 06:44; Stop 10/02/16 at 06:45 ; Status DC Bupivacaine HCl/ Epinephrine Bitart (Sensorcain-Mpf Epi 0.5%-1:025831) 30 ml STK -MED ONCE .ROUTE Last administered on 10/02/16 12:41; Start 10/02/16 at 06:44 ; Stop 10/02/16 at 06:45; Status DC Midazolam HCl (Versed) 2 mg STK-MED ONCE .ROUTE ; Start 10/02/16 at 10:39; Stop 10/02/16 at 10:40; Status DC Remifentanil HCl (Ultiva) 2 mg STK-MED ONCE IV ; Start 10/02/16 at 10:39; Stop 10/02/16 at 10:40; Status DC Fentanyl Citrate (Fentanyl 2ml Vial) 100 mcg STK-MED ONCE .ROUTE ; Start at 10:39; Stop 10/02/16 at 10:40; Status DC Glycopyrrolate (Robinul) 1 mg STK-MED ONCE .ROUTE ; Start 10/02/16 at 10:39; Stop 10/02/16 at 10:40; Status DC Rocuronium [place] (Zemuron) 50 mg STK-MED ONCE .ROUTE ; Start 10/02/16 at 10:39 ; Stop 10/02/16 at 10:40; Status DC Desflurane (Suprane) 90 ml STK-MED ONCE IH ; Start 10/02/16 at 10:41; Stop 10/02 at 10:42; Status DC Lidocaine HCl 100 mg STK-MED ONCE .ROUTE ; Start 10/02/16 at 10:42; Stop at 10:43; Status DC Dexamethasone Sodium Phosphate 20 mg 20 mg STK-MED ONCE .ROUTE ; Start 10/02/16 at 10:42; Stop 10/02/16 at 10:43; Status DC Propofol 20 ml @ As Directed STK-MED ONCE IV ; Start 10/02/16 at 10:42; Stop at 10:43; Status DC Propofol (Diprivan) 50 ml @ As Directed STK-MED ONCE IV ; Start 10/02/16 at 10: 42; Stop 10/02/16 at 10:43; Status DC Ondansetron HCl (Zofran) 4 mg STK-MED ONCE .ROUTE ; Start 10/02/16 at 10:42; Stop 10/02/16 at 10:43; Status DC Phenylephrine HCl (Prashanth-Synephrine Inj) 10 mg STK-MED ONCE .ROUTE ; Start at 10:42; Stop 10/02/16 at 10:43; Status DC Scopolamine 1 patch 1 patch STK-MED ONCE TD ; Start 10/02/16 at 11:43; Stop at 11:44; Status DC Propofol (Diprivan) 50 ml @ As Directed STK-MED ONCE IV ; Start 10/02/16 at 13: 04; Stop 10/02/16 at 13:05; Status DC Remifentanil HCl 2 mg 2 mg STK-MED ONCE IV ; Start 10/02/16 at 14:05; Stop 10/02 at 14:06; Status DC Propofol (Diprivan) 50 ml @ As Directed STK-MED ONCE IV ; Start 10/02/16 at 14: 40; Stop 10/02/16 at 14:41; Status DC Phenylephrine HCl (Prashanth-Synephrine Inj) 10 mg STK-MED ONCE .ROUTE ; Start at 15:55; Stop 10/02/16 at 15:56; Status DC Hydromorphone HCl (Dilaudid) 0.5 mg PRN Q10MIN PRN IV SEVERE PAIN, Second choice Last administered on 10/02/16 17:59; Start 10/02/16 at 18:15; Stop 10/03 at 06:00; Status DC Fentanyl Citrate (Fentanyl 2ml Vial) 50 mcg PRN Q5MIN PRN IV MODERATE PAIN Last administered on 10/02/16 18:09; Start 10/02/16 at 18:15; Stop 10/03/16 at 06:00; Status DC Escitalopram Oxalate (Lexapro) 10 mg DAILY PO Last administered on 10/07/16 08 :11; Start 10/03/16 at 09:00 Pantoprazole Sodium (Protonix) 40 mg DAILYAC PO Last administered on 10/07/16 08:10; Start 10/03/16 at 07:30 Raloxifene HCl (Evista) 60 mg DAILY PO Last administered on 10/07/16 08:11; Start 10/03/16 at 09:00 Simvastatin (Zocor) 20 mg HS PO Last administered on 10/06/16 20:21; Start at 21:00 Calcium/Vitamin D (Oscal D 500mg/ 200uts) 1 tab DAILYWBKFT PO Last administered on 10/07/16 08:10; Start 10/03/16 at 08:00 Vitamin D (Vitamin D3) 2,000 unit DAILY PO Last administered on 10/07/16 08:11 ; Start 10/03/16 at 09:00 Lactobacillus Acidophilus (Bacid, Lyric-Bid) 1 tab DAILY PO Last administered on 10/07/16 08:10; Start 10/03/16 at 09:00 Losartan Potassium (Cozaar) 100 mg DAILY PO Last administered on 10/07/16 08: 11; Start 10/03/16 at 09:00 Acetaminophen (Tylenol) 650 mg PRN Q6HRS PRN PO MILD PAIN / TEMP Last administered on 10/07/16 08:10; Start 10/02/16 at 18:15 Al Hydroxide/Mg Hydroxide (Mylanta Plus Xs) 30 ml PRN Q3HRS PRN PO HEARTBURN / GAS Last administered on 10/05/16 08:34; Start 10/02/16 at 18:15 Calcium Carbonate/ Glycine (Tums) 500 mg PRN Q3HRS PRN PO INDIGESTION; Start at 18:15 Diphenhydramine HCl (Benadryl) 25 mg PRN Q6HRS PRN PO ITCHING; Start 10/02/16 at 18:15 Diphenhydramine HCl (Benadryl) 25 mg PRN Q6HRS PRN IV ITCHING; Start 10/02/16 at 18:15 Sodium Chloride 3 ml 3 ml QSHIFT PRN IV AFTER MEDS AND BLOOD DRAWS; Start 10/02 at 18:15 Potassium Chloride/Dextrose/ Sod Cl (KCl 20 Meq In D5W-1/2 NS) 1,000 ml @ 75 mls/hr [id number] IV ; Start 10/02/16 at 18:30; Stop 10/07/16 at 03:33; Status DC Oxycodone/ Acetaminophen (Percocet 5/325) 1 tab PRN Q4HRS PRN PO MILD PAIN, 1ST CHOICE Last administered on 10/06/16 08:18; Start 10/02/16 at 18:15 Oxycodone/ Acetaminophen (Percocet 5/325) 2 tab PRN Q4HRS PRN PO MODERATE PAIN , SEVERE PAIN Last administered on 10/07/16 04:17; Start 10/02/16 at 18:15 Methocarbamol (Robaxin) 750 mg TID PO Last administered on 10/06/16 20:21; Start 10/02/16 at 21:00 Docusate Sodium (Colace) 100 mg BID PO Last administered on 10/06/16 08:19; Start 10/02/16 at 21:00; Stop 10/06/16 at 14:09; Status DC Magnesium Hydroxide (Milk Of Magnesia) 2,400 mg PRN Q12HR PRN PO CONSTIPATION Last administered on 10/05/16 08:32; Start 10/02/16 at 18:15 Ondansetron HCl 4 mg 4 mg PRN Q6HRS PRN IV NAUESA, 1ST CHOICE Last administered on 10/07/16 04:17; Start 10/02/16 at 18:15 Cefazolin Sodium/ Sodium Chloride (Ancef/Iv Sodium Chloride 0.9% 50ml) 50 ml @ 100 mls/hr Q8H IV Last administered on 10/03/16 11:38; Start 10/02/16 at 20:00 ; Stop 10/03/16 at 12:29; Status DC Fentanyl Citrate (Fentanyl 2ml Vial) 25 mcg PRN Q1HR PRN IV PAIN; Start at 18:15 Fentanyl Citrate (Fentanyl 2ml Vial) 50 mcg PRN Q1HR PRN IV PAIN Last administered on 10/05/16 13:10; Start 10/02/16 at 18:15 Cefazolin Sodium/ Dextrose (Ancef 2gm Premix) 2 gm STK-MED ONCE IV ; Start 10/02 at 16:00; Stop 10/03/16 at 08:08; Status DC Bisacodyl (Dulcolax Tab) 5 mg PRN DAILY PRN PO CONSTIPATION Last administered on 10/05/16 03:37; Start 10/03/16 at 13:30 Bisacodyl (Dulcolax Tab) 10 mg PRN DAILY PRN PO CONSTIPATION; Start 10/03/16 at 13:30 Sodium Chloride (Sodium Chloride) 50 ml STK-MED ONCE IJ ; Start 10/02/16 at 14: 05; Stop 10/04/16 at 11:58; Status DC Sodium Biphosphate/ Sodium Phosphate (Fleet Adult) 133 ml 1X ONCE AR Last administered on 10/05/16 11:40; Start 10/05/16 at 11:15; Stop 10/05/16 at 11:16 ; Status DC Phenyleph/Shark Oil/Min Oil/Petrol (Preparation H) 1 samreen PRN Q6HRS PRN RC RECTAL PAIN Last administered on 10/05/16 15:05; Start 10/05/16 at 14:45 Docusate Sodium (Colace) 100 mg BID PO Last administered on 10/07/16 08:11; Start 3/27/17 at 21:00 Active Scripts Active Reported Vitamin D3 (Cholecalciferol (Vitamin D3)) 2,000 Unit Tablet 2,000 Unit PO DAILY Calcium 1,000 + D3 Caplet (Calcium Carbonate/Vitamin D3) 1 Each Tablet 1 Each PO DAILY Simvastatin 20 Mg Tablet 20 Mg PO HS Probiotic (Lactobacillus Combo No.11) 1 Each Cap.sprink 1 Each PO DAILY Protonix (Pantoprazole Sodium) 40 Mg Tablet.dr 40 Mg PO DAILY Escitalopram Oxalate 10 Mg Tablet 10 Mg PO DAILY Evista (Raloxifene Hcl) 60 Mg Tablet 60 Mg PO DAILY Losartan-Hctz 100-25 Mg Tab (Losartan/Hydrochlorothiazide) 1 Each Tablet 1 Each PO DAILY Ibuprofen 400 Mg Tablet 400 Mg PO PRN Q6HRS PRN Vitals/I & O Vital Sign - Last 24 Hours 10/06/16 10/06/16 10/06/16 10/06/16 11:00 14:26 15:00 19:20 Temp 98.4 98.8 98.2 98.4 98.8 98.2 Pulse 86 83 86 Resp 18 18 18 B/P 109/66 113/62 120/77 Pulse Ox 99 97 98 O2 Delivery Room Air Room Air Room Air Room Air 10/06/16 10/06/16 10/06/16 10/07/16 19:20 20:00 22:59 03:20 Temp 98.2 98.5 98.1 98.2 98.5 98.1 Pulse 86 74 76 Resp 18 18 18 B/P 120/77 104/63 113/65 Pulse Ox 98 96 18 O2 Delivery Room Air Room Air Room Air Room Air 10/07/16 10/07/16 10/07/16 10/07/16 04:17 05:20 07:00 07:57 Temp 98.4 98.4 Pulse 83 Resp 18 20 B/P 138/79 Pulse Ox 98 O2 Delivery Room Air Room Air Room Air 10/07/16 08:11 Pulse 83 B/P 138/79 Intake and Output 10/06/16 10/06/16 10/07/16 15:00 23:00 07:00 Intake Total 700 ml Balance 700 ml ANABELL ZAPIEN MD Oct 07, 2016 10:06
[2016-10-07] MEDS ORDERED: HYDROCODONE/APAP 10/325 TABLET. PO PRN (10:15)
[2016-10-07] MEDS ORDERED: PROMETHAZINE 12.5 MG TABLET. PO PRN (10:45)
[2016-10-07 11:00] VITALS: BP 142/71
--- NOTE | 2016-10-07 13:57 | PDOC ---
PROGRESS NOTES Subjective Subjective sitting up on side of bed pain improved but some residual pain in right lower leg some nausea with Percocet, better with Tylenol Objective Objective Vital Signs Date Time Temp Pulse Resp B/P Pulse Ox O2 Delivery O2 Flow Rate FiO2 10/07/16 11:00 98.5 83 20 142/71 99 Room Air 98.5 10/06/16 08:00 2.0 Intake and Output 10/07/16 07:00 Intake Total 700 ml Balance 700 ml Intake Oral 700 ml # Voids 4 Physical Exam General: Alert, Oriented X3, Cooperative, No acute distress MUSCULOSKELETAL: Other (MACIAS) Neuro: Normal speech Psych/Mental Status: Mental status NL Skin: Other (dressing C,D,I, Flat) Assessment Assessment Problems Medical Problems: (1) Spondylolisthesis Status: Acute Plan Plan of Care May dc home with services. F/u 2 weeks. Comment Review of Relevant I have reviewed the following items meryl (where applicable) has been applied. Medications Current Medications Fentanyl Citrate (Fentanyl 2ml Vial) 25 mcg PRN Q5MIN PRN IV MILD PAIN; Start 10/02/16 at 07:00; Stop 10/02/16 at 18:00; Status DC Fentanyl Citrate (Fentanyl 2ml Vial) 50 mcg PRN Q5MIN PRN IV MODERATE PAIN Last administered on 10/02/16 17:35; Start 10/02/16 at 07:00; Stop 10/02/16 at 18:00; Status DC Morphine Sulfate 1 mg 1 mg PRN Q10MIN PRN IV SEVERE PAIN; Start 10/02/16 at 07: 00; Stop 10/02/16 at 18:00; Status DC Lactated Ringer's (Iv Lactated Ringers) 1,000 ml @ 30 mls/hr Q24H IV Last administered on 10/02/16 08:34; Start 10/02/16 at 07:00; Stop 10/02/16 at 18:59 ; Status DC Lidocaine HCl 2 ml 1X PRN PRN ID IV START; Start 10/02/16 at 07:00; Stop at 18:00; Status DC Hydromorphone HCl 0.5 mg 0.5 mg PRN Q10MIN PRN IV SEVERE PAIN, Second choice Last administered on 10/02/16 17:47; Start 10/02/16 at 07:00; Stop 10/02/16 at 18:00; Status DC Bacitracin 28558 unit/Sodium Chloride 1,000 ml @ 1,000 mls/hr 1X PERIOP ONCE IRR Last administered on 10/02/16 12:41; Start 10/02/16 at 08:00; Stop at 08:59; Status DC Cefazolin Sodium/ Dextrose (Ancef 2gm Premix) 50 ml @ 100 mls/hr 1X PREOP PRN IV PRIOR TO PROCEDURE Last administered on 10/02/16 16:04; Start 10/02/16 at 06 :00; Stop 10/02/16 at 18:00; Status DC Thrombin 20,000 unit STK-MED ONCE TP Last administered on 10/02/16 12:41; Start 10/02/16 at 06:44; Stop 10/02/16 at 06:45; Status DC Gelatin (Gelfoam Size 100) 1 each STK-MED ONCE .ROUTE Last administered on 12:41; Start 10/02/16 at 06:44; Stop 10/02/16 at 06:45; Status DC Ketorolac Tromethamine (Toradol For Or Only) 60 mg STK-MED ONCE .ROUTE Last administered on 10/02/16 12:41; Start 10/02/16 at 06:44; Stop 10/02/16 at 06:45 ; Status DC Bupivacaine HCl/ Epinephrine Bitart (Sensorcain-Mpf Epi 0.5%-1:[id number]) 30 ml STK -MED ONCE .ROUTE Last administered on 10/02/16 12:41; Start 10/02/16 at 06:44 ; Stop 10/02/16 at 06:45; Status DC Midazolam HCl (Versed) 2 mg STK-MED ONCE .ROUTE ; Start 10/02/16 at 10:39; Stop 10/02/16 at 10:40; Status DC Remifentanil HCl (Ultiva) 2 mg STK-MED ONCE IV ; Start 10/02/16 at 10:39; Stop 10/02/16 at 10:40; Status DC Fentanyl Citrate (Fentanyl 2ml Vial) 100 mcg STK-MED ONCE .ROUTE ; Start at 10:39; Stop 10/02/16 at 10:40; Status DC Glycopyrrolate (Robinul) 1 mg STK-MED ONCE .ROUTE ; Start 10/02/16 at 10:39; Stop 10/02/16 at 10:40; Status DC Rocuronium [place] (Zemuron) 50 mg STK-MED ONCE .ROUTE ; Start 10/02/16 at 10:39 ; Stop 10/02/16 at 10:40; Status DC Desflurane (Suprane) 90 ml STK-MED ONCE IH ; Start 10/02/16 at 10:41; Stop 10/02 at 10:42; Status DC Lidocaine HCl 100 mg STK-MED ONCE .ROUTE ; Start 10/02/16 at 10:42; Stop at 10:43; Status DC Dexamethasone Sodium Phosphate 20 mg 20 mg STK-MED ONCE .ROUTE ; Start 10/02/16 at 10:42; Stop 10/02/16 at 10:43; Status DC Propofol 20 ml @ As Directed STK-MED ONCE IV ; Start 10/02/16 at 10:42; Stop at 10:43; Status DC Propofol (Diprivan) 50 ml @ As Directed STK-MED ONCE IV ; Start 10/02/16 at 10: 42; Stop 10/02/16 at 10:43; Status DC Ondansetron HCl (Zofran) 4 mg STK-MED ONCE .ROUTE ; Start 10/02/16 at 10:42; Stop 10/02/16 at 10:43; Status DC Phenylephrine HCl (Prashanth-Synephrine Inj) 10 mg STK-MED ONCE .ROUTE ; Start at 10:42; Stop 10/02/16 at 10:43; Status DC Scopolamine 1 patch 1 patch STK-MED ONCE TD ; Start 10/02/16 at 11:43; Stop at 11:44; Status DC Propofol (Diprivan) 50 ml @ As Directed STK-MED ONCE IV ; Start 10/02/16 at 13: 04; Stop 10/02/16 at 13:05; Status DC Remifentanil HCl 2 mg 2 mg STK-MED ONCE IV ; Start 10/02/16 at 14:05; Stop 10/02 at 14:06; Status DC Propofol (Diprivan) 50 ml @ As Directed STK-MED ONCE IV ; Start 10/02/16 at 14: 40; Stop 10/02/16 at 14:41; Status DC Phenylephrine HCl (Prashanth-Synephrine Inj) 10 mg STK-MED ONCE .ROUTE ; Start at 15:55; Stop 10/02/16 at 15:56; Status DC Hydromorphone HCl (Dilaudid) 0.5 mg PRN Q10MIN PRN IV SEVERE PAIN, Second choice Last administered on 10/02/16 17:59; Start 10/02/16 at 18:15; Stop 10/03 at 06:00; Status DC Fentanyl Citrate (Fentanyl 2ml Vial) 50 mcg PRN Q5MIN PRN IV MODERATE PAIN Last administered on 10/02/16 18:09; Start 10/02/16 at 18:15; Stop 10/03/16 at 06:00; Status DC Escitalopram Oxalate (Lexapro) 10 mg DAILY PO Last administered on 10/07/16 08 :11; Start 10/03/16 at 09:00 Pantoprazole Sodium (Protonix) 40 mg DAILYAC PO Last administered on 10/07/16 08:10; Start 10/03/16 at 07:30 Raloxifene HCl (Evista) 60 mg DAILY PO Last administered on 10/07/16 08:11; Start 10/03/16 at 09:00 Simvastatin (Zocor) 20 mg HS PO Last administered on 10/06/16 20:21; Start at 21:00 Calcium/Vitamin D (Oscal D 500mg/ 200uts) 1 tab DAILYWBKFT PO Last administered on 10/07/16 08:10; Start 10/03/16 at 08:00 Vitamin D (Vitamin D3) 2,000 unit DAILY PO Last administered on 10/07/16 08:11 ; Start 10/03/16 at 09:00 Lactobacillus Acidophilus (Bacid, Lyric-Bid) 1 tab DAILY PO Last administered on 10/07/16 08:10; Start 10/03/16 at 09:00 Losartan Potassium (Cozaar) 100 mg DAILY PO Last administered on 10/07/16 08: 11; Start 10/03/16 at 09:00 Acetaminophen (Tylenol) 650 mg PRN Q6HRS PRN PO MILD PAIN / TEMP Last administered on 10/07/16 08:10; Start 10/02/16 at 18:15 Al Hydroxide/Mg Hydroxide (Mylanta Plus Xs) 30 ml PRN Q3HRS PRN PO HEARTBURN / GAS Last administered on 10/05/16 08:34; Start 10/02/16 at 18:15 Calcium Carbonate/ Glycine (Tums) 500 mg PRN Q3HRS PRN PO INDIGESTION; Start at 18:15 Diphenhydramine HCl (Benadryl) 25 mg PRN Q6HRS PRN PO ITCHING; Start 10/02/16 at 18:15 Diphenhydramine HCl (Benadryl) 25 mg PRN Q6HRS PRN IV ITCHING; Start 10/02/16 at 18:15 Sodium Chloride 3 ml 3 ml QSHIFT PRN IV AFTER MEDS AND BLOOD DRAWS; Start 10/02 at 18:15 Potassium Chloride/Dextrose/ Sod Cl (KCl 20 Meq In D5W-1/2 NS) 1,000 ml @ 75 mls/hr [id number] IV ; Start 10/02/16 at 18:30; Stop 10/07/16 at 03:33; Status DC Oxycodone/ Acetaminophen (Percocet 5/325) 1 tab PRN Q4HRS PRN PO MILD PAIN, 1ST CHOICE Last administered on 10/06/16 08:18; Start 10/02/16 at 18:15; Stop 10/07/16 at 10:09; Status DC Oxycodone/ Acetaminophen (Percocet 5/325) 2 tab PRN Q4HRS PRN PO MODERATE PAIN , SEVERE PAIN Last administered on 10/07/16 04:17; Start 10/02/16 at 18:15; Stop 10/07/16 at 10:09; Status DC Methocarbamol (Robaxin) 750 mg TID PO Last administered on 10/06/16 20:21; Start 10/02/16 at 21:00 Docusate Sodium (Colace) 100 mg BID PO Last administered on 10/06/16 08:19; Start 10/02/16 at 21:00; Stop 10/06/16 at 14:09; Status DC Magnesium Hydroxide (Milk Of Magnesia) 2,400 mg PRN Q12HR PRN PO CONSTIPATION Last administered on 10/05/16 08:32; Start 10/02/16 at 18:15 Ondansetron HCl 4 mg 4 mg PRN Q6HRS PRN IV NAUESA, 1ST CHOICE Last administered on 10/07/16 10:28; Start 10/02/16 at 18:15 Cefazolin Sodium/ Sodium Chloride (Ancef/Iv Sodium Chloride 0.9% 50ml) 50 ml @ 100 mls/hr Q8H IV Last administered on 10/03/16 11:38; Start 10/02/16 at 20:00 ; Stop 10/03/16 at 12:29; Status DC Fentanyl Citrate (Fentanyl 2ml Vial) 25 mcg PRN Q1HR PRN IV PAIN; Start at 18:15 Fentanyl Citrate (Fentanyl 2ml Vial) 50 mcg PRN Q1HR PRN IV PAIN Last administered on 10/05/16 13:10; Start 10/02/16 at 18:15 Cefazolin Sodium/ Dextrose (Ancef 2gm Premix) 2 gm STK-MED ONCE IV ; Start 10/02 at 16:00; Stop 10/03/16 at 08:08; Status DC Bisacodyl (Dulcolax Tab) 5 mg PRN DAILY PRN PO CONSTIPATION Last administered on 10/05/16 03:37; Start 10/03/16 at 13:30 Bisacodyl (Dulcolax Tab) 10 mg PRN DAILY PRN PO CONSTIPATION; Start 10/03/16 at 13:30 Sodium Chloride (Sodium Chloride) 50 ml STK-MED ONCE IJ ; Start 10/02/16 at 14: 05; Stop 10/04/16 at 11:58; Status DC Sodium Biphosphate/ Sodium Phosphate (Fleet Adult) 133 ml 1X ONCE IA Last administered on 10/05/16 11:40; Start 10/05/16 at 11:15; Stop 10/05/16 at 11:16 ; Status DC Phenyleph/Shark Oil/Min Oil/Petrol (Preparation H) 1 samreen PRN Q6HRS PRN RC RECTAL PAIN Last administered on 10/05/16 15:05; Start 10/05/16 at 14:45 Docusate Sodium (Colace) 100 mg BID PO Last administered on 10/07/16t 08:11; Start 10/06/16 at 21:00 Acetaminophen/ Hydrocodone Bitart (Lortab 10/325) 1 tab PRN Q6HRS PRN PO PAIN; Start 10/07/16 at 10:15 Promethazine HCl (Phenergan) 25 mg PRN Q4HRS PRN PO NAUSEA/VOMITING; Start at 10:45 Active Scripts Active Reported Vitamin D3 (Cholecalciferol (Vitamin D3)) 2,000 Unit Tablet 2,000 Unit PO DAILY Calcium 1,000 + D3 Caplet (Calcium Carbonate/Vitamin D3) 1 Each Tablet 1 Each PO DAILY Simvastatin 20 Mg Tablet 20 Mg PO HS Probiotic (Lactobacillus Combo No.11) 1 Each Cap.sprink 1 Each PO DAILY Protonix (Pantoprazole Sodium) 40 Mg Tablet.dr 40 Mg PO DAILY Escitalopram Oxalate 10 Mg Tablet 10 Mg PO DAILY Evista (Raloxifene Hcl) 60 Mg Tablet 60 Mg PO DAILY Losartan-Hctz 100-25 Mg Tab (Losartan/Hydrochlorothiazide) 1 Each Tablet 1 Each PO DAILY Ibuprofen 400 Mg Tablet 400 Mg PO PRN Q6HRS PRN Vitals/I & O Vital Sign - Last 24 Hours 10/06/16 10/06/16 10/06/16 10/06/16 14:26 15:00 19:20 19:20 Temp 98.8 98.2 98.2 98.8 98.2 98.2 Pulse 83 86 86 Resp 18 18 18 B/P 113/62 120/77 120/77 Pulse Ox 97 98 98 O2 Delivery Room Air Room Air Room Air Room Air 10/06/16 10/06/16 10/07/16 10/07/16 20:00 22:59 03:20 04:17 Temp 98.5 98.1 98.5 98.1 Pulse 74 76 Resp 18 18 18 B/P 104/63 113/65 Pulse Ox 96 18 O2 Delivery Room Air Room Air Room Air 10/07/16 10/07/16 10/07/16 10/07/16 05:20 07:00 07:57 08:11 Temp 98.4 98.4 Pulse 83 83 Resp 20 B/P 138/79 138/79 Pulse Ox 98 O2 Delivery Room Air Room Air Room Air 10/07/16 11:00 Temp 98.5 98.5 Pulse 83 Resp 20 B/P 142/71 Pulse Ox 99 O2 Delivery Room Air Intake and Output 10/06/16 10/06/16 10/07/16 15:00 23:00 07:00 Intake Total 700 ml Balance 700 ml NINA WALLER MD Oct 07, 2016 13:57
[2016-10-07 15:00] VITALS: BP_SYST 134
== END 2016-10-07 16:40 | disposition home health service (06) | DRG 460 ==
LOC: OPSVCIP 07:36 → 4 SOUTHEST 18:17 → 4 NORTH 10-03 18:41
PROVIDERS: ADMIT Neurological Surgery; ATTEND Neurological Surgery
PROC: 4A11X4G Monitoring of Peripheral Nervous Electrical Activity, Intraoperative, External Approach (ICD-10-PCS; 2016-10-02)
PROC: 07DR3ZZ Extraction of Iliac Bone Marrow, Percutaneous Approach (ICD-10-PCS; 2016-10-02)
PROC: 0SG1071 Fusion of 2 or more Lumbar Vertebral Joints with Autologous Tissue Substitute, Posterior Approach, Posterior Column, Open Approach (ICD-10-PCS; principal; 2016-10-02 11:30)
DX: M48.06 Spinal stenosis, lumbar region (principal); M43.16 Spondylolisthesis, lumbar region; M54.16 Radiculopathy, lumbar region; G62.9 Polyneuropathy, unspecified; G89.29 Other chronic pain; I10 Essential (primary) hypertension; K59.00 Constipation, unspecified; M21.371 Foot drop, right foot; M85.80 Other specified disorders of bone density and structure, unspecified site; Z82.49 Family history of ischemic heart disease and other diseases of the circulatory system; Z83.3 Family history of diabetes mellitus
CPT/HCPCS: 36415; 72131; 76000; 86850; 86900; 86901; 88304; 88311; C1713; J0690; J1100; J1170; J1885; J2250; J2405; J2704; J3010; J3490; J7030; J7120; Q0169; 97110; 97116; 97530; 97535